=== PATIENT | female | born 1940 | race Caucasian/White ===

== ENCOUNTER → 2017-06-17 | Outpatient (CLI) | payer MEDICARE ==
--- NOTE | 2017-06-17 15:44 | XR ---
Lumbar spine HISTORY: Low back pain 3 views of the lumbar spine and correlated to CT 09/15/2014 There is a levoscoliosis centered at L2 with rotatory component. Vascular calcifications are noted i ncidentally. Multilevel spondylosis is present. Loss of disc height present at L1-2, L2-3 with associ ated vacuum phenomenon, there is endplate sclerosis. Lumbar vertebral bodies show preserved height an d bone mineralization. Sclerosis present in the posterior elements lower lumbar spine. IMPRESSION: Scoliosis, degenerative disc disease and facet arthropathy.
== END | disposition home or self-care (01) ==
LOC: RADXRMAIN 12:24
PROVIDERS: ATTEND Family Medicine
DX: M51.36 Other intervertebral disc degeneration, lumbar region (principal); M41.86 Other forms of scoliosis, lumbar region; M46.86 Other specified inflammatory spondylopathies, lumbar region
CPT/HCPCS: 72100

== ENCOUNTER → 2018-02-08 | Outpatient (CLI) | payer MEDICARE ==
--- NOTE | 2018-02-08 15:40 | US ---
EXAMINATION TYPE: US venous doppler duplex LE LT DATE OF EXAM: 02/08/2018 3:18 PM COMPARISON: NONE CLINICAL HISTORY: M79.605 Pain In Limb. Patient fel 2 weeks ago landing on left leg resulting in left popliteal fossa pain. SIDE PERFORMED: Left TECHNIQUE: The lower extremity deep venous system is examined utilizing real time linear array sonog terrie with graded compression, doppler sonography and color-flow sonography. VESSELS IMAGED: Common Femoral Vein Deep Femoral Vein Greater Saphenous Vein * Femoral Vein Popliteal Vein Small Saphenous Vein * Proximal Calf Veins (* superficial vessels) Left Leg: Negative for DVT. Popliteal fossa complex fluid are is noted = 3.7 x 2.0 x 1.4cm. Grayscale, color doppler, spectral doppler imaging performed of the deep veins of the lower extremiti es. There is normal flow, compressibility, vascular waveforms. IMPRESSION: No evident deep venous thrombosis at or above the left knee. 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 MRI for further additional evaluation.
== END | disposition home or self-care (01) ==
LOC: RADUSWWP 14:37
PROVIDERS: ATTEND Family Medicine
DX: M79.605 Pain in left leg (principal)

== ENCOUNTER → 2018-10-19 | Outpatient (CLI) | payer MEDICARE ==
[2018-10-19 14:54] LABS: Blood Urea Nitrogen 22 mg/dL (7-17)
--- NOTE | 2018-10-19 15:40 | CT ---
EXAMINATION TYPE: CT chest w con DATE OF EXAM: 10/19/2018 COMPARISON: HRCT 03/29/2013 HISTORY: 78-year-old female SOB, Abnormal findings TECHNIQUE: Contiguous axial scanning of the chest after the administration of 100 mL of Isovue 300. Coronal/sagittal reconstructions performed. CT DLP: 521mGycm. Automatic exposure control utilized for a dose reduction. FINDINGS: Heart is upper limits of normal in size without pericardial effusion. Coronary vessel calcifications are present. The thoracic aorta is tortuous and elongated. Aortic root measures 3.2 cm. Mid ascending aorta is mildly ectatic at 3.6 cm as measured on sagittal image 49 and coronal image 36 . Proximal arch measures 3.3 cm. There is bovine configuration to the aortic arch. Upper descending thoracic aorta measures 2.8 cm. Prominent but not enlarged 9 mm precarinal lymph node. No thoracic lymphadenopathy by CT size criteri a. Mild biapical pleural-parenchymal scarring. No consolidation or pleural effusion. Qrlxw-[id number] size hiatal hernia with mural-based irregularity demonstrated. Visualized upper abdomen otherwise shows no gross abnormality. Bones: Endplate spondylosis and associated degenerative disc disease seen throughout the visualized s pine. IMPRESSION: 1. Tortuous and elongated thoracic aorta. The mid ascending aorta is mildly ectatic at 3.6 cm. No fra nk aneurysm. 2. Bbwul-ye-zjvhuqae sized hiatal hernia. Some mural-based irregularity is favored to represent mucos al redundancy rather than neoplasm. Direct visualization as indicated.
== END | disposition home or self-care (01) ==
LOC: RADCTMAIN 14:17
PROVIDERS: ATTEND Internal Medicine
DX: I77.810 Thoracic aortic ectasia (principal); K44.9 Diaphragmatic hernia without obstruction or gangrene
CPT/HCPCS: 82565; 84520; 71260; 36415; Q9967

== ENCOUNTER → 2020-05-25 | Day surgery (SDC) | payer MEDICARE ==
[2020-05-23 17:17] VITALS: BMI 30.5
[~2020-05-25] MED LIST: LACTATED RINGERS 1,000 ML IV SCH; LIDOCAINE 1% (10MG/ML) FOR IV START INTRADERMA ONE; LIDOCAINE 1% INJ 10MG/ML (20 ML MDV) ONE; PROPOFOL 10 MG/ML 20 ML VIAL IV ONE
[2020-05-25 09:19] VITALS: TEMP 96.9
--- NOTE | 2020-05-25 10:45 | P.PCN ---
Date of Procedure: 05/25/20 Procedure(s) Performed: BRIEF HISTORY: Patient is a 79-year-old, pleasant, white female scheduled for an upper endoscopy as a part of evaluation of intermittent dysphagia to solids. She had prior history of esophageal dilation for esophageal stricture performed in 2017. PROCEDURE PERFORMED: Esophagogastroduodenoscopy with balloon dilation. PREOPERATIVE DIAGNOSIS: Intermittent dysphagia to solids. IV sedation per anesthesia. PROCEDURE: After informed consent was obtained, the patient was brought into the endoscopy unit. IV sedation was administered by Anesthesia under continuous monitoring. Initially the Olympus GIF-140 video endoscope was inserted into the mouth. Esophagus intubated without any difficulty. It was gradually advanced into the stomach and duodenum and carefully examined. The bulb and the second part of the duodenum appeared normal. The scope at this time was withdrawn to th e stomach, adequately insufflated with air, and upon careful examination, mucosa of the antrum, body, cardia and the fundus appeared normal. The scope was then withdrawn into the esophagus. The GE junction was located at 39 cm from the incisors. There was a widely patent distal esophageal Schatzki's ring noted which was dilated using 18-20 mm TTS balloon for 90 seconds. There was a small hiatal hernia noted. The rest of the esophagus appeared normal. There were no erosions or ulcerations seen and the patient tolerated the procedure well. IMPRESSION: 1. Distal esophageal Schatzki's ring status post balloon dilation using 18-20 mm TTS balloon as described above. 2. Small Hiatal hernia. RECOMMENDATIONS: The findings of this examination were discussed with the patient as well as her family. She was advised to be on a clear liquid diet today. She'll be seen in office in 4-6 weeks.
[2020-05-25 11:05] VITALS: BP 155/85; PULSE 90; RESP 17
== END ==
LOC: ORWHC2ENDO 08:42
PROVIDERS: ATTEND Internal Medicine Gastroenterology
DX: K22.2 Esophageal obstruction (principal); K44.9 Diaphragmatic hernia without obstruction or gangrene; K21.9 Gastro-esophageal reflux disease without esophagitis; I10 Essential (primary) hypertension; E78.5 Hyperlipidemia, unspecified; J45.909 Unspecified asthma, uncomplicated; E07.9 Disorder of thyroid, unspecified; Z79.890 Hormone replacement therapy; Z79.899 Other long term (current) drug therapy; Z90.710 Acquired absence of both cervix and uterus; Z97.2 Presence of dental prosthetic device (complete) (partial); Z98.890 Other specified postprocedural states
CPT/HCPCS: 43249; J2001; J2704; C1726

== ENCOUNTER → 2020-11-02 | Outpatient (CLI) | payer MEDICARE ==
[2020-11-02 11:49] LABS: HCT 40.3 % (34.0-46.0); HGB 13.4 gm/dL (11.4-16.0); MCH 29.3 pg (25.0-35.0); MCHC 33.3 g/dL (31.0-37.0); MCV 88.1 fL (80.0-100.0); Mean Platelet Volume 7.6; Platelet Count 169 k/uL (150-450); RBC 4.57 m/uL (3.80-5.40); RDW 13.2 % (11.5-15.5); WBC 9.7 k/uL (3.8-10.6)
[2020-11-02 11:57] LABS: INR 0.9 (<1.2); Prothrombin Time 9.9 sec (9.0-12.0)
[2020-11-02 12:00] LABS: Appearance,Urine Clear (Clear); Bilirubin,Urine Negative (Negative); Blood,Urine Negative (Negative); Color,Urine Light Yellow; Glucose,Urine (UA) Negative (Negative); Ketones,Urine Negative (Negative); Leukocyte Esterase,Urine Negative (Negative); Nitrite,Urine Negative (Negative); PH, Urine 6.5 (5.0-8.0); Protein,Urine Negative (Negative); Specific Gravity,Urine 1.005 (1.001-1.035); Urobilinogen,Urine <2.0 mg/dL (<2.0)
[2020-11-02 12:02] LABS: ALT 51 U/L (4-34); AST 40 U/L (14-36); African American GFR (CKD) >90 (>60 ml/min/1.73 sqM); Albumin 4.6 g/dL (3.5-5.0); Alkaline Phosphatase 91 U/L (38-126); Anion Gap 9 mmol/L; Blood Urea Nitrogen 21 mg/dL (7-17); Calcium 9.9 mg/dL (8.4-10.2); Carbon Dioxide 30 mmol/L (22-30); Chloride 100 mmol/L (98-107); Glucose 109 mg/dL (74-99); Non-African American GFR(CKD) 86 (>60 ml/min/1.73 sqM); Potassium 3.9 mmol/L (3.5-5.1); Sodium 139 mmol/L (137-145); Total Bilirubin 0.9 mg/dL (0.2-1.3); Total Protein 7.2 g/dL (6.3-8.2)
== END | disposition home or self-care (01) ==
LOC: LABPAT 10:34
PROVIDERS: ATTEND Orthopaedic Surgery
DX: Z01.818 Encounter for other preprocedural examination (principal); M17.12 Unilateral primary osteoarthritis, left knee; Z79.01 Long term (current) use of anticoagulants; Z01.812 Encounter for preprocedural laboratory examination
CPT/HCPCS: 36415; 80053; 81003; 85027; 85610; 85730; 87070; 93005

== ENCOUNTER 2020-11-27 11:44 | Observation (INO) | payer MEDICARE ==
[2020-11-21 16:37] VITALS: BMI 31.7
[~2020-11-27 11:44] MED LIST changes: +ACETAMINOPHEN TAB 500 MG TAB PO PRN; +GABAPENTIN 300 MG CAP PO PRN; +HYDROmorphone 0.5 MG/0.5 ML SYRINGE IVP PRN; -LACTATED RINGERS 1,000 ML IV SCH; -LIDOCAINE 1% (10MG/ML) FOR IV START INTRADERMA ONE; -LIDOCAINE 1% INJ 10MG/ML (20 ML MDV) ONE; +MELOXICAM 7.5 MG TAB PO PRN; +ONDANSETRON 4 MG/2 ML VIAL IVP ONE; -PROPOFOL 10 MG/ML 20 ML VIAL IV ONE; +TRANEXAMIC ACID 1,000 MG in SODIUM CHLORIDE 0.9% 100 ML IVPB PRN; +fentaNYL (PF) 50 MCG/ML 2 ML AMP IV PRN
[2020-11-27] MEDS: LACTATED RINGERS 1,000 ML IV SCH ×2 (12:33→18:25)
[2020-11-27] MEDS ORDERED: MIDAZOLAM 2 MG/2 ML VIAL IVP ONE (12:42)
[2020-11-27] MEDS ORDERED: ceFAZolin 3,000 MG in SODIUM CHLORIDE 0.9% IRRIGATIO 3,000 ML IRRIGATION ONE (14:46)
[2020-11-27] MEDS ORDERED: ROPIVACAINE 0.2%-NS ON-Q PUMP 1,090 MG, EMPTY PAIN BALL 1 EACH MISCELLANE PRN (14:48)
--- NOTE | 2020-11-27 14:50 | P.ANPRN ---
Procedure Note - Anesthesia - Nerve Block Performed Left Adductor Canal Time Out Performed: Yes (12:42) Date of Procedure: 11/27/20 Procedure Start Time: :42 Procedure Stop Time: 12:59 Location of Patient: PreOp Indication: Acute Post-Operative Pain, Requested by Surgeon (Dr Vinny Ward) Sedation Type: Sedate with meaningful contact maintained Preparation: Sterile Prep, Sterile Dressing Position: Supine Catheter: Indwelling Needle Types: Pajunk Needle Gauge: 21 Ultrasound used to visualize needle placement: Yes Ultrasound used to observe medication spread: Yes Injectate: 0.5% Ropivacaine (see comment for volume) (18cc) Blood Aspirated: No Pain Paresthesia on Injection Noted: No Resistance on Injection: Normal Image Stored and Saved: Yes Events: Uneventful and Well Tolerated
[2020-11-27] MEDS: ROPIVACAINE 246.25 MG, EPINEPHrine 0.5 MG, KETOROLAC 30 MG, cloNIDine HCL/PF 80 MCG, WA... MISCELLANE PRN ×10 (14:51→15:29)
[2020-11-27] MEDS ORDERED: LACTATED RINGERS 1,000 ML IV ONE (15:29)
--- NOTE | 2020-11-27 15:39 | P.OP ---
Date of Procedure: 11/27/20 Preoperative Diagnosis: severe osteoarthritis of the left knee with a valgus deformity Postoperative Diagnosis: severe osteoarthritis the left knee with a valgus deformity Procedure(s) Performed: left total knee arthroplasty Implants: [employer] II CR Oxinium Bi-cruciate femoral component size 7stabilized\4, left [employer] Journey nonporous tibial baseplate size 3, left [employer] Journey II, UHMWPE constrained articular insert, size 9 mm, Size 3-4, left [employer] Journey Mirtha II resurfacing patellar component, oval, 29 mm All components were cemented using Palacos R bone cement The articulation is Oxinium on polyethylene Anesthesia: GETA Surgeon: Vniny Ward Didactic Program In Dietetics Director #1: Kathleen Rodgers Estimated Blood Loss (ml): 25 Pathology: other (bone and cartilage) Condition: stable Disposition: PACU Indications for Procedure: After failure of conservative treatment we discussed the surgical and nonsurgical treatment options at length. Patient wishes to proceed with a total knee arthroplasty. Complications specific to this procedure were discussed at length, including but not limited to infection, bleeding, stiffness, and nerve injury. Covid-19 was also discussed at length with the patient, and they are aware of the current policies and procedures. The patient was given the option of delaying surgery, but they elect to proceed knowing these risks. Patient is aware of all these complications and informed consent was obtained Operative Findings: the operative findings are consistent with severe osteoarthritis of the left knee with a valgus deformity Description of Procedure: Patient was seen in the preoperative area consent was reviewed and operative site was marked with a skin marker. Patient was then brought to the operating room and given preoperative antibiotics intravenously. A spinal anesthetic was administered by the anesthesia department. A tourniquet was placed on the upper thigh and the lower extremity was prepped and draped in usual sterile fashion. A gram of transexamic acid was given. A universal timeout was then performed which confirmed the patient's name, surgical site, ALLERGIES, and consent. The lower extremity was then exsanguinated and tourniquet was inflated to 250 mmHg. A standard and anterior midline approach to the knee was performed. The skin and subcutaneous tissue was dissected down to the patellar tendon. A medial parapatellar arthrotomy was then performed. The knee was then extended, the patellar was everted, and the knee was again flexed. Anterior horns of both menisci were excised, and a minimal medial release was performed because of the valgus deformity of the knee.. On gross visual inspection, there was complete loss of articular cartilage in all 3 compartments of the knee. There was also significant cartilage damage in the lateral compartment. There were multiple periarticular osteophytes which were then removed with a Ronguer. The femoral canal was then opened with the appropriate drill, and the intramedullary femoral cutting guide was then placed and set for 4 of valgus. The distal femoral cutting block was then pinned in place, and the distal femur was then cut. The cutting block was then removed and the cut was checked for flatness. Next, the sizing guide was then placed and set for 3 external rotation based off of the epicondylar axis and Whitesides line. After the femur was sized, the appropriate 4-in-1 cutting block was then pinned in place. The anterior condyles were cut without notching. The posterior and chamfer cuts were performed while protecting the collateral ligaments. The cutting block was then removed. Attention was then directed to the tibia. The remaining ACL was removed with a Ronguer, and the tibia was then gently subluxed forward with a large bent knee retractor. Any remaining menisci was excised. The posterior lateral corner was cauterized in order to cauterize the lateral geniculate artery. The extra medullary tibial cutting guide was then placed, set for the appropriate rotation, slope, and depth of resection. The proximal tibia cutting guide was then pinned in place. Proximal tibia was then cut and sized. The femoral trial was then placed. The box cutting guide was placed and then using the appropriate reamer, the bone was reamed for the box. Then the box os teotome was used to finish the reaming. Next trials were then placed with the appropriate-sized insert. The knee was able to fully extend and flex to 130 and was stable throughout all range of motion. The knee was then extended, patella everted. Patella was then measured, and then using an osteotomy guide, the patella was cut at the appropriate level. The patella was then measured and drilled and the patella trial was then placed. The knee was then taken through range of motion with the patella trial and the patella tracked normally. The knee was then extended patella trial was then removed and the patella was everted. Knee was then flexed and lug holes were drilled through the femoral trial and the femoral trial was then removed. The tibial was then exposed, and the tibial broach guide was then pinned in place after it was set for the appropriate rotation to allow for the most coverage without overhang. The tibia was then broached. The cut surfaces of bone were then irrigated with pulsatile lavage. The posterior structures were injected with the ropivacaine solution. The components were then opened, the cement was mixed, and the components were then cemented in place. The cement was allowed to harden with the knee in full extension. While the cement was hardening, the remaining soft tissues were injected with the ropivacaine solution. After the cemented hardened. The tourniquet was released, and hemostasis was obtained. A second gram of transexamic acid was given. The knee was again irrigated. The knee was again taken through range of motion and found to be stable throughout all range of motion of 0-130, and the patella tracked normally. The fascia was then closed with #2 strata fix suture. The subcutaneous tissue was closed with 3-0 Vicryl and 3-0 strata fix. Exofin glue was used for the skin, and the patient was placed in a sterile dressing. Patient was then transferred to recovery room in stable condition. The speech language pathology assistant LIDIA La was required due the complexity surgery and the need for a skilled surgical assist. She assisted in positioning, draping, retraction, and closure of the woundclosure of the wound.
[2020-11-27] MEDS ORDERED: HYDROmorphone 0.5 MG/0.5 ML SYRINGE IVP PRN ×2 (16:10)
[2020-11-27] MEDS ORDERED: NALOXONE 0.4 MG/ML 1 ML VIAL IV PRN (16:10)
[2020-11-27] MEDS ORDERED: MAGNESIUM HYDROXIDE 2,400 MG/10 ML CUP PO PRN (16:10)
[2020-11-27] MEDS ORDERED: NA PHOS,M-B/NA PHOS,DI-BA 133 ML ENEMA RECTAL PRN (16:10)
[2020-11-27] MEDS ORDERED: HYDROmorphone 0.2 MG/1 ML SYRINGE IVP PRN (16:10)
[2020-11-27] MEDS ORDERED: bisacodyL 10 MG SUPP RECTAL PRN (16:10)
[2020-11-27] MEDS ORDERED: ONDANSETRON 4 MG/2 ML VIAL IVP PRN (16:10)
[2020-11-27] MEDS ORDERED: HYDROcodone/APAP 7.5-325MG 1 EACH TAB PO PRN (16:12)
--- NOTE | 2020-11-27 17:03 | XR ---
Result: History: Postoperative knee. Comparison: None available. Technique: 2 views of the left knee. Findings: There are postsurgical changes related to left total knee arthroplasty. There are postsurgical changes about the soft tissues. No acute fracture or dislocation. No immediate hardware complication. Impression: Expected postoperative changes of left total knee arthroplasty.
[2020-11-27] MEDS: SODIUM CHLORIDE 0.9% 1,000 ML IV SCH (18:26)
[2020-11-27] MEDS: SENNOSIDES-DOCUSATE SODIUM 1 EACH TAB PO SCH (21:12)
[2020-11-27] MEDS: ASPIRIN 325 MG TAB PO SCH (21:12)
--- NOTE | 2020-11-27 23:45 | P.CONS ---
History of Present Illness - Reason for Consult Consult date: 11/27/20 Medical management Requesting physician: Vinny Ward - Chief Complaint Knee pain - History of Present Illness Consultation: This is a pleasant 80-year-old patient who follows with Dr. Ramirez. Chronic stable medical conditions include asthma, GERD, hard of hearing, hypertension, hyperlipidemia, history of dysphagia with dilatation, gout urinary incontinence. Patient today has undergone left total knee arthroplasty. Not hungry postprocedure. Did use a walker to get to the bathroom. Pain is controlled. No nausea vomiting. No chest pain. Review of systems: GEN.: None EYES: None HEENT: Decreased hearing NECK: None RESPIRATORY: Breathing stable CARDIOVASCULAR: None GASTROINTESTINAL: None GENITOURINARY: None MUSCULOSKELETAL: Joint pains LYMPHATICS: None HEMATOLOGICAL: None PSYCHIATRY: None NEUROLOGICAL: None Past medical history to include: Asthma, GERD, hard of hearing, hyperlipidemia, hypertension, os to the right is, hypothyroid, history of esophageal dilatation, gout, wears hearing aids, urinary incontinence, anxiety Social history: No history of smoking or alcohol. Family history: Reviewed, noncontributory to presentation Physical examination: VITAL SIGNS: 98.2, 87, 16, 1 54 x 82, 95% on 2 L GENERAL: BMI 31.7, comfortable. EYES: Pupils equal. Conjunctiva normal. HEENT: External appearance of nose and ears normal, oral cavity grossly normal. Decreased hearing NECK: JVD not raised; masses not palpable. HEART: First and second heart sounds are normal; no edema. LUNGS: Respiratory rate increased, decreased breath sounds. ABDOMEN: Soft, nontender, liver spleen not palpable, no masses palpable. PSYCH: Alert and oriented x3; mood and affect normal. MUSCULAR skeletal: Evidence of OA. Dressing over the left knee NEUROLOGICAL: Cranial nerves grossly intact; no facial asymmetry, power and sensation grossly intact. LYMPHATICS: No lymph nodes palpable in the axilla and neck INVESTIGATIONS, reviewed in the clinical context: [. 11/30/2020]: WBC 9.7 hemoglobin 13.4 platelets 169 potassium 3.9 creatinine 0.60 Assessment and plan: -Left total knee arthroplasty, pain control as per Dr. Ward. -Primary osteoarthritis, use analgesics when necessary -Mild persistent asthma, continue with albuterol nebulizer when necessary -GERD, continue with PPI -Hard of hearing, patient has hearing aids -Hyperlipidemia, on TriCor -Essential hypertension, continue with losartan hydrochlorothiazide -Hypothyroid, continue with Synthroid -Chronic gout, on allopurinol -Chronic urinary stress incontinence, patient weighs dependence -Anxiety not otherwise specified, continue with Celexa For DVT prophylaxis patient on aspirin per Dr. Ward. Care was discussed with the patient. Questions answered. Thank you Dr. Ward Past Medical History Past Medical History: Asthma, GERD/Reflux, Hearing Disorder / Deafness, Hyperlipidemia, Hypertension, Osteoarthritis (OA), Thyroid Disorder Additional Past Medical History / Comment(s): Hx of dysphagia with dilation, gout, hearing aids, neck & lower back pain, hx falls, urine leakage wears pads., pain left knee-has walker and cane. History of Any Multi-Drug Resistant Organisms: None Reported Past Surgical History: Hysterectomy, Orthopedic Surgery Additional Past Surgical History / Comment(s): EGD with dilation (05/08/20), arthroscopic knee surgery Past Anesthesia/Blood Transfusion Reactions: No Reported Reaction Past Psychological History: Anxiety Smoking Status: Never smoker Past Alcohol Use History: None Reported Past Drug Use History: None Reported - Past Family History Mother Family Medical History: No Reported History Medications and Allergies Home Medications Medication Instructions Recorded Confirmed Type Albuterol Nebulized [Ventolin 2.5 mg INHALATION Q6H PRN 05/23/20 11/21/20 History Nebulized] Allopurinol [Zyloprim] 150 mg PO DAILY 05/23/20 11/21/20 History Cholecalciferol [Vitamin D3 (25 1,000 unit PO DAILY 05/23/20 11/21/20 History Mcg = 1000 Iu)] Fenofibrate Nanocrystallized 145 mg PO DAILY 05/23/20 11/21/20 History [Fenofibrate] Levothyroxine Sodium 25 mcg PO QAM 05/23/20 11/21/20 History Levothyroxine Sodium [Synthroid] 200 mcg PO QAM 05/23/20 11/21/20 History Losartan/Hydrochlorothiazide 1 tab PO QAM 05/23/20 11/21/20 History [Losartan-Hctz 100-25 mg Tab] Montelukast [Singulair] 10 mg PO HS 05/23/20 11/21/20 History Omeprazole 20 mg PO DAILY 05/23/20 11/21/20 History Albuterol .083%/3ml 1 dose INHALATION BID PRN 11/21/20 History Citalopram Hydrobromide 40 mg PO HS 11/21/20 11/21/20 History [Citalopram HBr] Cyanocobalamin (Vitamin B-12) 1,000 mcg PO DAILY 11/21/20 11/21/20 History [Vitamin B-12] Ibuprofen 200 mg PO Q8H PRN 11/21/20 11/21/20 History amLODIPine BESYLATE [Norvasc] 2.5 mg PO DAILY 11/21/20 11/21/20 History Aspirin 325 mg PO BID #60 tab 11/27/20 Rx Celecoxib [CeleBREX] 200 mg PO DAILY 5 Days #5 capsule 11/27/20 Rx HYDROcodone/APAP 7.5-325MG [Arnold 1 - 2 tab PO Q6H PRN #32 tab 11/27/20 Rx 7.5-325] Ondansetron Odt [Zofran Odt] 1 tab PO Q8HR PRN #10 tab 11/27/20 Rx Sennosides [Senokot] 2 tab PO DAILY PRN #60 tablet 11/27/20 Rx Allergies Allergy/AdvReac Type Severity Reaction Status Date / Time No Known Allergies Allergy Verified 11/27/20 12:23 Physical Exam Vitals: Vital Signs Temp Pulse Pulse Resp BP Pulse Ox 11/27/20 20:46 80 15 154/82 95 11/27/20 18:19 98.2 F 87 16 176/92 90 L 11/27/20 17:30 92 18 162/78 94 L 11/27/20 17:15 84 18 148/60 96 11/27/20 17:00 74 18 149/74 11/27/20 16:45 81 18 150/68 91 L 11/27/20 16:30 78 18 178/86 95 11/27/20 16:09 98.1 F 94 14 177/85 96 11/27/20 13:13 82 16 147/78 97 11/27/20 12:23 97.9 F 92 16 173/84 96 Intake and Output 11/27/20 11/27/20 11/28/20 14:59 22:59 06:59 Intake Total 1051 600 Output Total 25 Balance 1051 575 Intake: IV 1051 600 Output: Estimated Blood Loss 25 Other: Voiding Method Toilet Incontinent Weight 76 kg
[2020-11-28] MEDS: HYDROcodone/APAP 7.5-325MG 1 EACH TAB PO PRN (06:02)
--- NOTE | 2020-11-28 07:54 | P.PN ---
Progress Note - Text The patient is status post left adductor canal catheter placement. The catheter was placed for postoperative pain control, status post total left arthroplasty. Ropivacaine 0.2% is infusing at 8 mLs per hour. The patient has no complaints of left lower extremity numbness or weakness. Patient's VAS score is 2-10. Assessment: Patient's adductor canal catheter is in place and working appropriately. Plan: continue infusion and adjust it as needed.
[2020-11-28] MEDS: SODIUM CHLORIDE 0.9% 1,000 ML IV SCH (08:46)
[2020-11-28 08:53] LABS: Basophils # (A) 0.02 X 10*3/uL (0.00-0.10); Basophils % (A) 0.2 %; Eosinophils # (A) 0.02 X 10*3/uL (0.04-0.35); Eosinophils % (A) 0.2 %; HCT 36.2 % (37.2-46.3); HGB 11.6 g/dL (12.0-15.0); Lymphocytes # (A) 1.01 X 10*3/uL (0.90-5.00); MCV 90.5 fL (80.0-97.0); Mean Platelet Volume 11.3 fL (9.5-12.2); Monocytes # (A) 1.03 X 10*3/uL (0.20-1.00); Monocytes % (A) 8.2 %; Neutrophils # (A) 10.41 X 10*3/uL (1.80-7.70); Neutrophils % (A) 82.8 %; Platelet Count 160 X 10*3/uL (140-440); WBC 12.56 X 10*3/uL (4.50-10.00)
[2020-11-28] MEDS: LACTATED RINGERS 1,000 ML IV SCH (09:51)
[2020-11-28] MEDS: ASPIRIN 325 MG TAB PO SCH ×2 (09:52→20:47)
[2020-11-28] MEDS: MELOXICAM 7.5 MG TAB PO SCH (09:52)
--- NOTE | 2020-11-28 10:33 | P.PN ---
Subjective Progress Note Date: 11/28/20 Principal diagnosis: Primary osteoarthritis left knee. Valgus deformity left knee. Status post total left knee arthroplasty. This is a pleasant 80-year-old female who is postop day #1 status post total left knee arthroplasty. She is having some nausea and vomiting this morning. She states that she has a poor appetite today. Orthopedically she is doing well. Otherwise no known complaints or concerns today. Vital signs are stable. Objective - Vital Signs Vital signs: Vital Signs Temp 98.3 F 11/28/20 08:35 Pulse 87 11/28/20 08:35 Resp 24 11/28/20 08:35 BP 151/73 11/28/20 08:35 Pulse Ox 96 11/28/20 08:21 Intake & Output 11/27/20 11/28/20 11/28/20 18:59 06:59 18:59 Intake Total 1651 Output Total 25 Balance 1626 Weight 76 kg Intake: IV 1651 Output: Estimated Blood Loss 25 Other: Voiding Method Toilet Incontinent # Voids 3 - Exam This is a pleasant 80-year-old female in no acute distress. She is alert and oriented 3. Exam of the left lower extremity reveals that her Optifoam dressing is clean, dry and intact. She is able to flex the knees slightly off the bed. She has full foot and ankle motion without difficulty or pain. Neurovascular status to the lower extremity is intact. - Labs CBC & Chem 7: 11/28/20 05:40 Labs: Abnormal Lab Results - Last 24 Hours (Table) 11/28/20 Range/Units 05:40 WBC 12.56 H (4.50-10.00) X 10*3/uL RBC 4.00 L (4.10-5.20) X 10*6/uL Hgb 11.6 L (12.0-15.0) g/dL Hct 36.2 L (37.2-46.3) % Immature Gran # 0.07 H (0.00-0.04) X 10*3/uL Neutrophils # 10.41 H (1.80-7.70) X 10*3/uL Monocytes # 1.03 H (0.20-1.00) X 10*3/uL Eosinophils # 0.02 L (0.04-0.35) X 10*3/uL Assessment and Plan (1) Primary localized osteoarthritis of left knee Current Visit: Yes Status: Acute Code(s): M17.12 - UNILATERAL PRIMARY OS TEOARTHRITIS, LEFT KNEE SNOMED Code(s): 078656828 (2) Status post total left knee replacement Current Visit: Yes Status: Acute Code(s): Z96.652 - PRESENCE OF LEFT ARTIFICIAL KNEE JOINT SNOMED Code(s): 7758546262572 (3) Valgus deformity, not elsewhere classified, left knee Current Visit: Yes Status: Acute Code(s): M21.062 - VALGUS DEFORMITY, NOT ELSEWHERE CLASSIFIED, LEFT KNEE SNOMED Code(s): 0065958134640831 Plan: The clinical findings are discussed with the patient. She is awaiting inpatient rehabilitation placement. Continue orthopedic care and physical therapy.
[2020-11-28] MEDS: SENNOSIDES-DOCUSATE SODIUM 1 EACH TAB PO SCH (20:47)
[2020-11-29] MEDS: HYDROcodone/APAP 7.5-325MG 1 EACH TAB PO PRN ×2 (00:22→15:28)
[2020-11-29] MEDS: SODIUM CHLORIDE 0.9% 1,000 ML IV SCH ×2 (00:25→13:22)
--- NOTE | 2020-11-29 00:25 | P.PN ---
Progress Note - Text Progress Note Date: 11/28/20 - Chief Complaint Knee pain Consultation: This is a pleasant 80-year-old patient who follows with Dr. Ramirez. Chronic stable medical conditions include asthma, GERD, hard of hearing, hypertension, hyperlipidemia, history of dysphagia with dilatation, gout urinary incontinence. has undergone left total knee arthroplasty. Today: Some pain in the operative site. Did eat a bit. Did work with therapy. Tired. Oral intake fair Review of systems: Was done for constitutional, cardiovascular, GI, pulmonary. relevant finding as above Active Medications Hydrocodone Bitart/Acetaminophen (Hydrocodone/Apap 7.5-325mg 1 Each Tab) 1 each PO Q6H PRN PRN Reason: Pain Scale 1 to 5 Stop: 12/27/20 16:13 Last Admin: 11/28/20 06:02 Dose: 1 each Documented by: Hydrocodone Bitart/Acetaminophen (Hydrocodone/Apap 7.5-325mg 1 Each Tab) 2 each PO Q6H PRN PRN Reason: Pain Scale 6 to 10 Stop: 12/27/20 16:13 Aspirin (Aspirin 325 Mg Tab) 325 mg PO BID [place] Stop: 12/27/20 21:01 Last Admin: 11/28/20 20:47 Dose: 325 mg Documented by: Bisacodyl (Bisacodyl 10 Mg Supp) 10 mg RECTAL DAILY PRN PRN Reason: Constipation Stop: 12/27/20 16:11 Ropivacaine 1,090 mg/ Bandage/ (Support Products 1 each) 0 mg MISCELLANE Q2H PRN PRN Reason: Breakthrough Pain Stop: 12/27/20 14:49 Last Admin: 11/27/20 17:00 Dose: 1,090 mg Documented by: Hydromorphone HCl (Hydromorphone 0.2 Mg/1 Ml Syringe) 0.2 mg IVP Q3HR PRN PRN Reason: Pain Scale 4 to 6 Stop: 12/27/20 16:11 Last Admin: 11/28/20 09:56 Dose: 0.2 mg Documented by: Hydromorphone HCl (Hydromorphone 0.5 Mg/0.5 Ml Syringe) 0.125 mg IVP Q3HR PRN PRN Reason: Pain Scale 1 to 3 Stop: 12/27/20 16:11 Hydromorphone HCl (Hydromorphone 0.5 Mg/0.5 Ml Syringe) 0.5 mg IVP Q3HR PRN PRN Reason: Pain Scale 7 to 10 Stop: 12/27/20 16:11 Lactated Ringer's (Lactated Ringers) 1,000 mls @ 20 mls/hr IV .Q24H [facility] Stop: 12/25/20 09:01 Last Admin: 11/28/20 09:51 Dose: Not Given Documented by: Sodium Chloride (Saline 0.9%) 1,000 mls @ 70 mls/hr IV .[id number] [facility] Stop: 12/27/20 16:16 Last Admin: 11/28/20 08:46 Dose: 70 mls/hr Documented by: Magnesium Hydroxide (Magnesium Hydroxide 2,400 Mg/10 Ml Cup) 2,400 mg PO DAILY PRN PRN Reason: Constipation Stop: 12/27/20 16:11 Meloxicam (Meloxicam 7.5 Mg Tab) 7.5 mg PO DAILY [facility] Stop: 12/28/20 09:01 Last Admin: 11/28/20 09:52 Dose: 7.5 mg Documented by: Naloxone HCl (Naloxone 0.4 Mg/Ml 1 Ml Vial) 0.2 mg IV Q2M PRN PRN Reason: Opioid Reversal Stop: 12/27/20 16:11 Ondansetron HCl (Ondansetron 4 Mg/2 Ml Vial) 4 mg IVP Q8HR PRN PRN Reason: Nausea And Vomiting Stop: 12/27/20 16:11 Last Admin: 11/28/20 11:46 Dose: 4 mg Documented by: Senna/Docusate Sodium (Sennosides-Docusate Sodium 1 Each Tab) 2 each PO HS [facility] Stop: 12/27/20 21:01 Last Admin: 11/28/20 20:47 Dose: 2 each Documented by: Sodium Biphosphate/Sodium Phosphate (Na Phos,M-B/Na Phos,Di-Ba 133 Ml Enema) 133 ml RECTAL DAILY PRN PRN Reason: Constipation Stop: 12/27/20 16:11 Past medical history to include: Asthma, GERD, hard of hearing, hyperlipidemia, hypertension, os to the right is, hypothyroid, history of esophageal dilatation, gout, wears hearing aids, urinary incontinence, anxiety Social history: No history of smoking or alcohol. Family history: Reviewed, noncontributory to presentation Physical examination: VITAL SIGNS: 98.3, 87, 24, 151/73, 96% on 2 L GENERAL: Sitting up, comfortable EYES: Pupils equal. Conjunctiva normal. HEENT: External appearance of nose and ears normal, oral cavity grossly normal. Decreased hearing NECK: JVD not raised; masses not palpable. HEART: First and second heart sounds are normal; no edema. LUNGS: Respiratory rate increased, decreased breath sounds. ABDOMEN: Soft, nontender, liver spleen not palpable, no masses palpable. PSYCH: Alert and oriented x3; mood and affect normal. MUSCULAR skeletal: Evidence of OA. Dressing over the left knee INVESTIGATIONS, reviewed in the clinical context: November 28: White count 12.5 hemoglobin 11.6 Previous labs WBC 9.7 hemoglobin 13.4 platelets 169 potassium 3.9 creatinine 0.60 Assessment and plan: -Left total knee arthroplasty, pain control as per Dr. Ward. -Primary osteoarthritis, use analgesics when necessary -Mild persistent asthma, continue with albuterol nebulizer when necessary -GERD, continue with PPI -Hard of hearing, patient has hearing aids -Hyperlipidemia, on TriCor -Essential hypertension, continue with losartan hydrochlorothiazide -Hypothyroid, continue with Synthroid -Chronic gout, on allopurinol -Chronic urinary stress incontinence, patient weighs dependence -Anxiety not otherwise specified, continue with Celexa Discussed with patient. Continue current medications Thank you Dr. Ward
--- NOTE | 2020-11-29 08:54 | P.DS ---
Providers Date of admission: 11/28/20 13:14 Expected date of discharge: 11/29/20 Attending physician: Vinny Ward Consults: 11/27/20 16:10 Consult Physician Routine Consulting Provider: Candelario Call Consult Reason/Comments: medical management Do you want consulting provider notified?: Yes Primary care physician: Santos Ramirez - Discharge Diagnosis(es) (1) Primary localized osteoarthritis of left knee Current Visit: Yes Status: Acute (2) Status post total left knee replacement Current Visit: Yes Status: Acute Hospital Course: This is a 80-year-old female with known history of degenerative arthritis of the left knee. The patient presented for evaluation as an outpatient. After discussion and consideration patient elects to proceed with total knee arthroplasty. The patient is seen preoperatively by Dr. Ward and medically cleared for surgery by their primary care physician. Patient is admitted to [facility] on 11/27/2020 for total knee arthroplasty. The procedure is performed without complication or sequelae. The patient is doing well postoperatively. Labs and vital signs are stable on day of discharge. On day of discharge patient's knee incision is healing well. There is minimal erythema. There is no drainage noted at this time. There is minimal soft tissue swelling to the knee. Patient has full foot and ankle motion without difficulty or pain. Calf is soft and nontender to palpation. Neurovascular status to the left lower extremity is intact. Patient is discharged to rehab in good condition. Opioid start talking form is reviewed and signed. Please see med rec for accurate list of home medications. Plan - Discharge Summary Discharge Rx Participant: Yes New Discharge Prescriptions: New Sennosides [Senokot] 2 tab PO DAILY PRN #60 tablet PRN Reason: Constipation Ondansetron Odt [Zofran Odt] 1 tab PO Q8HR PRN #10 tab PRN Reason: Nausea HYDROcodone/APAP 7.5-325MG [[place] 7.5-325] 1 - 2 tab PO Q6H PRN #32 tab PRN Reason: Pain Aspirin 325 mg PO BID #60 tab Celecoxib [CeleBREX] 200 mg PO DAILY 5 Days #5 capsule No Action Albuterol Nebulized [Ventolin Nebulized] 2.5 mg INHALATION Q6H PRN PRN Reason: Shortness Of Breath Cholecalciferol [Vitamin D3 (25 Mcg = 1000 Iu)] 1,000 unit PO DAILY Montelukast [Singulair] 10 mg PO HS Omeprazole 20 mg PO DAILY Losartan/Hydrochlorothiazide [Losartan-Hctz 100-25 mg Tab] 1 tab PO QAM Levothyroxine Sodium [Synthroid] 200 mcg PO QAM Levothyroxine Sodium 25 mcg PO QAM Fenofibrate Nanocrystallized [Fenofibrate] 145 mg PO DAILY Allopurinol [Zyloprim] 150 mg PO DAILY Cyanocobalamin (Vitamin B-12) [Vitamin B-12] 1,000 mcg PO DAILY Citalopram Hydrobromide [Citalopram HBr] 40 mg PO HS Ibuprofen 200 mg PO Q8H PRN PRN Reason: Pain amLODIPine BESYLATE [Norvasc] 2.5 mg PO DAILY Albuterol .083%/3ml 1 dose INHALATION BID PRN PRN Reason: Shortness Of Breath Discharge Medication List Albuterol Nebulized [Ventolin Nebulized] 2.5 mg INHALATION Q6H PRN 05/23/20 [History] Allopurinol [Zyloprim] 150 mg PO DAILY 05/23/20 [History] Cholecalciferol [Vitamin D3 (25 Mcg = 1000 Iu)] 1,000 unit PO DAILY 05/23/20 [History] Fenofibrate Nanocrystallized [Fenofibrate] 145 mg PO DAILY 05/23/20 [History] Levothyroxine Sodium 25 mcg PO QAM 05/23/20 [History] Levothyroxine Sodium [Synthroid] 200 mcg PO QAM 05/23/20 [History] Losartan/Hydrochlorothiazide [Losartan-Hctz 100-25 mg Tab] 1 tab PO QAM 05/23/20 [History] Montelukast [Singulair] 10 mg PO HS 05/23/20 [History] Omeprazole 20 mg PO DAILY 05/23/20 [History] Albuterol .083%/3ml 1 dose INHALATION BID PRN 11/21/20 [History] Citalopram Hydrobromide [Citalopram HBr] 40 mg PO HS 11/21/20 [History] Cyanocobalamin (Vitamin B-12) [Vitamin B-12] 1,000 mcg PO DAILY 11/21/20 [History] Ibuprofen 200 mg PO Q8H PRN 11/21/20 [History] amLODIPine BESYLATE [Norvasc] 2.5 mg PO DAILY 11/21/20 [History] Aspirin 325 mg PO BID #60 tab 11/27/20 [Rx] Celecoxib [CeleBREX] 200 mg PO DAILY 5 Days #5 capsule 11/27/20 [Rx] Ondansetron Odt [Zofran Odt] 1 tab PO Q8HR PRN #10 tab 11/27/20 [Rx] Sennosides [Senokot] 2 tab PO DAILY PRN #60 tablet 11/27/20 [Rx] HYDROcodone/APAP 7.5-325MG [[place] 7.5-325] 1 - 2 tab PO Q6H PRN #32 tab 11/29/20 [Rx] Follow up Appointment(s)/Referral(s): Vinny Ward DO [Doctor of Osteopathic Medicine] - 2 Weeks Ambulatory/Diagnostic Orders: Continuous Passive Motion (CPM) Machine [DME.AMB1] Time Frame: 3 Weeks, Location: None Selected Activity/Diet/Wound Care/Special Instructions: Weightbearing as tolerated with a walker. CPM 5-6h daily as tolerated. Leave dressing intact. May be removed by home care nurse or by patient in 10 days. May shower with dressing on. Recommend use of compression stockings daily until follow up to help prevent swelling and blood clots. May remove at night before sleeping. Please take aspirin 325mg twice daily for 30 days to prevent blood clots. Please follow up with [facility] and call with any questions or concerns, . Discharge Disposition: TRANSFER TO SNF/ECF
[2020-11-29] MEDS: MELOXICAM 7.5 MG TAB PO SCH (09:28)
[2020-11-29] MEDS: ASPIRIN 325 MG TAB PO SCH (09:28)
[2020-11-29] MEDS: LACTATED RINGERS 1,000 ML IV SCH (10:21)
[2020-11-29 14:07] VITALS: BP 126/79; PULSE 83; RESP 18; TEMP 98.2
--- NOTE | 2020-11-30 15:39 | P.PN ---
Subjective Progress Note Date: 11/29/20 Principal diagnosis: Left total knee arthroplasty Ms. Garay is a pleasant 80-year-old patient who follows with Dr. Ramirez. Chronic stable medical conditions include asthma, GERD, hard of hearing, hypertension, hyperlipidemia, history of dysphagia with dilatation, gout urinary incontinence. Patient has undergone left total knee arthroplasty on 11/27/2020. Postop no complications. She is getting ready for discharge. Vitals have been stable. Objective - Vital Signs Vital signs: Vital Signs Temp 98.2 F 11/29/20 14:06 Pulse 83 11/29/20 14:06 Resp 18 11/29/20 14:06 BP 126/79 11/29/20 14:06 Pulse Ox 93 L 11/29/20 14:06 Intake & Output 11/28/20 11/29/20 11/29/20 18:59 06:59 18:59 Other: Voiding Method Toilet Toilet # Voids 1 1 - Exam PHYSICAL EXAM Vital signs: Temperature 98.2, heart rate 80, respiratory rate 18, blood pressure 10/02/2078, saturating at 93% on room air. GENERAL: Sitting up, comfortable HEENT: Decreased hearing HEART: First and second heart sounds are normal; no edema. LUNGS: Respiratory rate increased, decreased breath sounds. MUSCULAR skeletal: Evidence of OA. Dressing over the left knee - Labs CBC & Chem 7: 11/28/20 05:40 Assessment and Plan Assessment: ASSESSMENT -Left total knee arthroplasty -Primary osteoarthritis -Mild persistent asthma -GERD, -Hard of hearing, patient has hearing aids -Hyperlipidemiar -Essential hypertension -Hypothyroid -Chronic gout -Chronic urinary stress incontinence, -Anxiety not otherwise specified PLAN: Patient's medication reconciliation has been done. Pain management and DVT prophylaxis as per orthopedics recommendations. Patient is advised to continue with the rest of her home medication regimen.
== END 2020-11-29 16:25 ==
LOC: OR 11:44 → 4SSUR 17:49 → OR 11-28 13:14 → 4SSUR 11-28 13:14
PROVIDERS: ADMIT Orthopaedic Surgery; ATTEND Orthopaedic Surgery
DX: M17.12 Unilateral primary osteoarthritis, left knee (principal); J45.909 Unspecified asthma, uncomplicated; I10 Essential (primary) hypertension; K21.9 Gastro-esophageal reflux disease without esophagitis; M1A.9XX0 Chronic gout, unspecified, without tophus (tophi); E78.5 Hyperlipidemia, unspecified; E03.9 Hypothyroidism, unspecified; N39.3 Stress incontinence (female) (male); M21.062 Valgus deformity, not elsewhere classified, left knee; R26.89 Other abnormalities of gait and mobility; E66.9 Obesity, unspecified; Z68.31 Body mass index [BMI] 31.0-31.9, adult; H91.90 Unspecified hearing loss, unspecified ear; F41.9 Anxiety disorder, unspecified; F32.9 Major depressive disorder, single episode, unspecified; Z79.1 Long term (current) use of non-steroidal anti-inflammatories (NSAID); Z79.82 Long term (current) use of aspirin; Z79.890 Hormone replacement therapy; Z79.899 Other long term (current) drug therapy; Z90.710 Acquired absence of both cervix and uterus; Z98.890 Other specified postprocedural states; Z87.19 Personal history of other diseases of the digestive system; Z87.11 Personal history of peptic ulcer disease; Z20.822 Contact with and (suspected) exposure to COVID-19
CPT/HCPCS: 27447; 94760; 97116; 97161; 97535; 97166; 64448; 76942; 85025; 88300; 87635; 73560; G0378 ×2; C1713; C1776; J2250; J0171; J0690 ×3; J2405 ×2; J1885; J2795 ×2; J0735; J1170 ×2

== ENCOUNTER 2021-08-21 11:04 | Day surgery (SDC) | payer MEDICARE ==
[2021-08-20 11:43] VITALS: BMI 32.6
[~2021-08-21 11:04] MED LIST changes: -ACETAMINOPHEN TAB 500 MG TAB PO PRN; -GABAPENTIN 300 MG CAP PO PRN; -HYDROmorphone 0.5 MG/0.5 ML SYRINGE IVP PRN; +LACTATED RINGERS 1,000 ML IV SCH; +LIDOCAINE 1% (10MG/ML) FOR IV START INTRADERMA PRN; -MELOXICAM 7.5 MG TAB PO PRN; -ONDANSETRON 4 MG/2 ML VIAL IVP ONE; -TRANEXAMIC ACID 1,000 MG in SODIUM CHLORIDE 0.9% 100 ML IVPB PRN; -fentaNYL (PF) 50 MCG/ML 2 ML AMP IV PRN
[2021-08-21 11:46] VITALS: TEMP 97.5
[2021-08-21] MEDS ORDERED: LIDOCAINE 1% INJ 10MG/ML (20 ML MDV) ONE (12:21)
[2021-08-21] MEDS ORDERED: PROPOFOL 10 MG/ML 20 ML VIAL IV ONE (12:21)
--- NOTE | 2021-08-21 12:32 | P.PCN ---
Date of Procedure: 08/21/21 Procedure(s) Performed: BRIEF HISTORY: Patient is a 80-year-old, pleasant, white female scheduled for an upper endoscopy as a part of evaluation of dysphagia to solids for the last several months duration. She does have long-standing history of GERD and has been on omeprazole 20 mg daily.. PROCEDURE PERFORMED: Esophagogastroduodenoscopy. PREOPERATIVE DIAGNOSIS: GERD/intermittent dysphagia to solids. IV sedation per anesthesia. PROCEDURE: After informed consent was obtained, the patient was brought into the endoscopy unit. IV sedation was administered by Anesthesia under continuous monitoring. Initially the Olympus GIF-140 video endoscope was inserted into the mouth. Esophagus intubated without any difficulty. It was gradually advanced into the stomach and duodenum and carefully examined. The bulb and the second part of the duodenum appeared normal. The scope at this time was withdrawn to the stomach, adequately insufflated with air, and upon careful examination, mucosa of the antrum, body, cardia and the fundus appeared normal. The scope was then withdrawn into the esophagus. Moderate sliding type hiatal hernia noted. The GE junction was located at 37 cm from the incisors. There was a widely patent distal esophageal Schatzki's ring identified and this was dilated using 15-18 mm TTS balloon in a sequential fashion for 60 seconds. The rest of the esophagus appeared normal. There were no erosions or ulcerations seen and the patient tolerated the procedure well. IMPRESSION: 1. Distal esophageal Schatzki's ring status post balloon dilation using 15-18 mm TTS balloon as described above. 2. Small sliding type hiatal hernia. RECOMMENDATIONS: The findings of this examination were discussed with the patient as well as a family. She was advised to continue with omeprazole 20 mg daily and follow antireflux measures..
[2021-08-21 12:44] VITALS: RESP 20
[2021-08-21 13:22] VITALS: BP 155/92; PULSE 88
== END 2021-08-21 13:22 | disposition home or self-care (01) ==
LOC: ORWHC2ENDO 11:04
PROVIDERS: ATTEND Internal Medicine Gastroenterology
DX: K21.9 Gastro-esophageal reflux disease without esophagitis (principal); K22.2 Esophageal obstruction; K44.9 Diaphragmatic hernia without obstruction or gangrene; I10 Essential (primary) hypertension; E78.5 Hyperlipidemia, unspecified; J45.909 Unspecified asthma, uncomplicated; E07.9 Disorder of thyroid, unspecified; Z79.899 Other long term (current) drug therapy
CPT/HCPCS: 43249; J2001; J2704; C1726

== ENCOUNTER → 2023-02-16 | Outpatient (CLI) | payer MEDICARE ==
--- NOTE | 2023-02-16 15:57 | XR ---
EXAMINATION TYPE: XR chest 2V DATE OF EXAM: 02/16/2023 COMPARISON: 08-22 TECHNIQUE: PA and lateral views submitted. HISTORY: Shortness of breath FINDINGS: The lungs are clear and there is no pneumothorax, pleural effusion, or focal pneumonia. Heart size normal and no overt failure. Osseous structures demonstrate hypertrophic and degenerative changes of the spine. There is prominence of the ascending aorta. Arthropathy of the shoulders with diffuse oste openia. IMPRESSION: 1. No acute process. There is ectasia of the aorta. There is increased prominence of the right hilum. Recommend CT scan of the chest to exclude aneurysm.
== END | disposition home or self-care (01) ==
LOC: RADXRMAIN 15:31
PROVIDERS: ATTEND Family Medicine
DX: I77.819 Aortic ectasia, unspecified site (principal); R07.89 Other chest pain
CPT/HCPCS: 71046

== ENCOUNTER → 2023-02-25 | Outpatient (CLI) | payer MEDICARE ==
[2023-02-25 11:22] LABS: African American GFR (CKD) 65 (>60 ml/min/1.73 sqM); Blood Urea Nitrogen 31 mg/dL (7-17); Non-African American GFR(CKD) 56 (>60 ml/min/1.73 sqM)
--- NOTE | 2023-02-25 12:44 | CT ---
EXAMINATION TYPE: CT chest w con DATE OF EXAM: 02/25/2023 COMPARISON: 10/19/2018 HISTORY: chest pain CT DLP: 353.8 mGycm Automated exposure control for dose reduction was used. TECHNIQUE: CT scan of the chest is performed with IV Contrast, patient injected with 80cc mL of Isovue 300. MIP Images are created on CT scanner and reviewed. 3D reconstructed images are created on an independent workstation and reviewed. FINDINGS: LUNGS: The lungs are grossly clear, there is no concerning parenchymal mass or nodule identified. T here is no pleural effusion or pneumothorax seen. The tracheobronchial tree is patent. MEDIASTINUM: There are no greater than 1 cm hilar or mediastinal lymph nodes. Trace pericardial effus ion is seen. Heart is enlarged and there is dense coronary artery calcification. AORTA: The thoracic aorta is tortuous and elongated. There is a bovine arch anatomy. Aortic root measures 3.2 cm. Mid ascending aorta is mildly ectatic at 3.7 cm. Proximal arch measures 3.3 cm. There is bovine configuration to the aortic arch. Upper descending thoracic aorta measures 2.8 cm. OTHER: Multilevel severe hypertrophic degenerative change with scoliosis. Deformity in the sagittal view of the sternum is motion artifact. There is a small hiatal hernia and there are punctate calcifi cations in the pancreatic tail and some of which appear vascular. 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 IMPRESSION: 1. Tortuous aorta measuring 3.7 cm in greatest dimension and previous measuring 3.6 cm. No diagnostic evidence of aneurysm 2. Small hiatal hernia. 3. Dense coronary artery calcification with cardiomegaly correlate clinically. 4. Hepatic steatosis.
== END | disposition home or self-care (01) ==
LOC: RADCTMAIN 10:40
PROVIDERS: ATTEND Family Medicine
DX: I77.810 Thoracic aortic ectasia (principal); I25.10 Atherosclerotic heart disease of native coronary artery without angina pectoris; I51.7 Cardiomegaly; K76.0 Fatty (change of) liver, not elsewhere classified; K44.9 Diaphragmatic hernia without obstruction or gangrene
CPT/HCPCS: 82565; 84520; 71260; 36415; Q9967

== ENCOUNTER → 2023-04-24 | Outpatient (CLI) | payer MEDICARE ==
--- NOTE | 2023-04-24 11:39 | XR ---
EXAMINATION TYPE: XR Hip LT and AP Pelvis DATE OF EXAM: 04/24/2023 COMPARISON: NONE HISTORY: Left hip TECHNIQUE: A single AP view of the pelvis is obtained. Two views of the left hip are obtained. FINDINGS: There is no acute fracture/dislocation evident in the pelvis. SI joints are patent. Vascul ar calcifications noted there is osteitis symphysis pubis. Moderate arthropathy of the right hip. There is severe arthropathy of the left hip with complete loss of joint space and cystic changes involving the femoral head which can be associated with osteonecro sis. Degenerative change lower lumbar spine. Spinal bifid occulta at the sacrococcygeal level. IMPRESSION: 1. Severe left hip arthropathy with complete loss of joint space. Cystic changes involving the femora l head can be associated with osteonecrosis.
== END | disposition home or self-care (01) ==
LOC: RADXRMAIN 11:09
PROVIDERS: ATTEND Family Medicine
DX: M16.12 Unilateral primary osteoarthritis, left hip (principal)
CPT/HCPCS: 73502

== ENCOUNTER → 2023-05-12 | Outpatient (CLI) | payer MEDICARE ==
--- NOTE | 2023-05-12 12:53 | NM ---
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 The patient exercised using a TIMA protocol and 1 minute prior to peak e xercise was injected with 26.0 mCi Tc 99m Sestamibi - Stress images obtained 75 minutes post injectio n. FINDINGS: Targeted heart rate was achieved during performance of the study. Review of stress and rest SPECT tika ges demonstrates no distinct perfusion abnormality. Gated analysis shows normal wall motion with an estimated left ventricular ejection fraction of 84 %. IMPRESSION: No scintigraphic evidence for reversible ischemia
--- NOTE | 2023-05-12 17:27 | CA ---
Lexiscan Nuclear Stress Test Report Name: Acacia Garay Exam Date: 05/12/2023 10:50 Exam Location: [facility] Ht (in): 62 Wt (lb): 164 BSA: 1.76 Ordering Phys: Santos Ramirez DO Referring Phys: Jana Narvaez Technologist: Elliot Cho Age: 82 Gender: F : 1940 Procedure CPT: Indications: I25.84 CORONARY ATHEROSCLEROSIS DUE TO CALCIFIED C ICD-10 Codes: Patient History: Medications: SEE LIST Meds past 24 hrs: Pretest Chest Pain: STRESS TEST Lexiscan Protocol Exercise Duration (min:sec): 02:[address] Depressions (mm): Angina Score: Hodges Score: Resting HR (bpm): 59 Peak HR (bpm): 81 Resting BP (mmHg): 136 / 77 Peak BP (mmHg): 166 / 85 MPHR: 137 Target HR: 116 % MPHR: 59 METS: 1.0 Total Dose: Peak Dose: Atropine: Double Product: 35609 BP Response: Stress Termination: PROTOCOL COMPLETE Stress Symptoms: No chest pain or symptoms Stress Summary: ECG ANALYSIS Resting ECG: Stress ECG: CONCLUSIONS RESTING EKG: [Normal sinus rhythm, normal EKG] , Heart rate 64 BPM Patient recieved IV infusion of Lexiscan 0.4mg and at peak infusion STRESS EKG showed: [No significant ST-T wave changes diagnostic for ischemia by ST segment analysis] ARRYTHMIAS: [No ectopic rhythms or sustained arrythmias] CONCLUSION: 1. Normal hemodynamic and heart response to Lexiscan infusion. 2. Normal resting EKG 3. Non-ischemic EKG response to lexiscan infusion 4. Nuclear perfusion imaging is reported separately by the radiology team. Please refer to that report for complete interpretation of this study. Dr Fortino Silvestre (Electronically Signed) Final Date: 12 May 2023 17:26
== END | disposition home or self-care (01) ==
LOC: RADNMMAIN 08:22
PROVIDERS: ATTEND Family Medicine
DX: I25.10 Atherosclerotic heart disease of native coronary artery without angina pectoris (principal); I25.84 Coronary atherosclerosis due to calcified coronary lesion
CPT/HCPCS: 93017; 78452; A9500

== ENCOUNTER → 2023-07-03 | Outpatient (CLI) | payer MEDICARE ==
[2023-07-03 12:53] LABS: Partial Thromboplastin Time 22.3 sec (22.0-30.0)
[2023-07-03 17:31] LABS: Appearance,Urine Turbid (Clear); Bilirubin,Urine Negative (Negative); Blood,Urine Negative (Negative); Color,Urine Yellow (Yellow); Ketones,Urine Negative (Negative); Nitrite,Urine Negative (Negative); Specific Gravity,Urine 1.025 (1.001-1.030)
[2023-07-03 17:32] LABS: ALT 15 U/L (8-44); AST 16 U/L (13-35); Albumin 4.4 d/dL (3.8-4.9); Albumin/Globulin Ratio 1.91 Ratio (1.60-3.17); Alkaline Phosphatase 65 U/L (41-126); Calcium 10.2 mg/dL (8.7-10.3); Carbon Dioxide 20.4 mmol/L (21.6-31.8); Chloride 103 mmol/L (96-109); Globulin 2.3 d/dL (1.6-3.3); Glucose 105 mg/dL (70-110); Potassium 4.3 mmol/L (3.5-5.5); Sodium 142 mmol/L (135-145); Total Bilirubin 0.3 mg/dL (0.3-1.2); Total Protein 6.7 d/dL (6.2-8.2)
[2023-07-03 17:33] LABS: Bacteria,Urine None Seen (None Seen)
[2023-07-03 18:02] LABS: HCT 38.7 % (37.2-46.3); HGB 11.9 d/dL (12.0-15.0); MCH 28.6 pg (27.0-32.0); MCHC 30.7 d/dL (32.0-37.0); Mean Platelet Volume 11.8 FL (9.5-12.2); NRBC Per 100 WBC 0 X 10*3/uL (0.00-0.01); Platelet Count 200 X 10*3/uL (140-440); RBC 4.16 X 10*6/uL (4.10-5.20)
[2023-07-03 21:48] LABS: INR 0.9 (<1.2); Prothrombin Time 10.2 sec (10.0-12.5)
== END | disposition home or self-care (01) ==
LOC: LABPAT 10:58
PROVIDERS: ATTEND Orthopaedic Surgery
DX: Z01.812 Encounter for preprocedural laboratory examination (principal); M16.12 Unilateral primary osteoarthritis, left hip
CPT/HCPCS: 80053; 81001; 85027; 85610; 85730; 86850; 86900; 86901; 87070

== ENCOUNTER 2023-07-14 05:38 | Inpatient (IN) | payer MEDICARE ==
[~2023-07-14 05:38] MED LIST changes: +ACETAMINOPHEN TAB 500 MG TAB PO PRN; +GABAPENTIN 300 MG CAP PO PRN; -LACTATED RINGERS 1,000 ML IV SCH; -LIDOCAINE 1% (10MG/ML) FOR IV START INTRADERMA PRN; +MELOXICAM 7.5 MG TAB PO PRN; +TRANEXAMIC 1,000 MG/100ML-NACL 1,000 MG in SALINE 1 100ML.BAG IVPB PRN
[2023-07-14] MEDS ORDERED: ONDANSETRON 4 MG/2 ML VIAL ONE (05:46)
[2023-07-14] MEDS ORDERED: LIDOCAINE 1% (10MG/ML) FOR IV START INTRADERMA PRN (05:49)
[2023-07-14] MEDS ORDERED: DEXAMETHASONE SOD PHOSPHATE 4 MG/ML 1 ML VIAL IV ONE (05:49)
[2023-07-14] MEDS ORDERED: ONDANSETRON 4 MG/2 ML VIAL IVP ONE (05:49)
[2023-07-14] MEDS: LACTATED RINGERS 1,000 ML IV SCH (06:22)
[2023-07-14] MEDS ORDERED: MIDAZOLAM 2 MG/2 ML VIAL IVP ONE (06:38)
[2023-07-14] MEDS ORDERED: ROPIVACAINE 5 MG/ML 30 ML VIAL ONE (06:50)
[2023-07-14] MEDS ORDERED: fentaNYL (PF) 50 MCG/ML 2 ML AMP ONE (06:50)
[2023-07-14] MEDS ORDERED: DEXAMETHASONE SOD PHOSPHATE 4 MG/ML 1 ML VIAL ONE (06:50)
[2023-07-14] MEDS ORDERED: PROPOFOL 10 MG/ML 20 ML VIAL IV ONE (06:50)
[2023-07-14] MEDS ORDERED: SODIUM CHLORIDE 0.9% (PF) 10 ML VIAL ONE (06:50)
[2023-07-14] MEDS ORDERED: TRANEXAMIC 1,000 MG/100ML-NACL PREMIX BAG ONE (06:50)
[2023-07-14] MEDS ORDERED: ceFAZolin 1,000 MG in SODIUM CHLORIDE 0.9% 1,000 ML IRRIGATION ONE (06:55)
[2023-07-14] MEDS ORDERED: HYDROmorphone 0.5 MG/0.5 ML SYRINGE IVP PRN ×4 (07:00→08:59)
[2023-07-14] MEDS ORDERED: ROPIVACAINE 5 MG/ML 30 ML VIAL MISCELLANE ONE ×2 (07:19→08:24)
--- NOTE | 2023-07-14 07:31 | P.ANPRN ---
Procedure Note - Anesthesia - Nerve Block Performed Left Ruy Single Time Out Performed: Yes Date of Procedure: 07/14/23 Procedure Start Time: 06:38 Procedure Stop Time: 06:45 Location of Patient: PreOp Indication: Acute Post-Operative Pain, Requested by Surgeon Specifically requested for management of pain by : Vinny Ward Sedation Type: Sedate with meaningful contact maintained Preparation: Sterile Prep Position: Supine Needle Types: Pajunk Needle Gauge: 21 Ultrasound used to visualize needle placement: Yes Ultrasound used to observe medication spread: Yes Injectate: 0.5% Ropivacaine (see comment for volume) (15 ml +10 ml NS + 4 mg dexamethasone) Blood Aspirated: No Pain Paresthesia on Injection Noted: No Resistance on Injection: Normal Image Stored and Saved: Yes Events: Uneventful and Well Tolerated
[2023-07-14] MEDS ORDERED: LACTATED RINGERS 1,000 ML IV ONE (08:25)
--- NOTE | 2023-07-14 08:33 | P.OP ---
Date of Procedure: 07/14/23 Preoperative Diagnosis: Severe osteoarthritis left hip Postoperative Diagnosis: Severe osteoarthritis left hip Procedure(s) Performed: Left total hip arthroplasty with a direct anterior approach Implants: [employer] Anthology standard size 3 [employer] R3, 3 hole hemispherical acetabular shell, 48 mm [employer] Reflection 6.5 mm cancellus screw, 20 mm 2 [employer] R3, XLPE 20 acetabular liner [employer] Oxinium femoral head 32 m, -3 All components were press-fit. The articulation is Oxinium on polyethylene. Anesthesia: spinal Surgeon: Vinny Ward Nba Player #1: Kathleen Rodgers Estimated Blood Loss (ml): 200 Pathology: none sent Condition: stable Disposition: PACU Indications for Procedure: After failure of conservative treatment we discussed the surgical and nonsurgical treatment options at length. Patient wishes to proceed with a total hip arthroplasty with a direct anterior approach. Complications specific to this procedure were discussed at length, including but not limited to infection, leg length discrepancy, dislocation, nerve injury, and fracture. Covid-19 was also discussed at length with the patient, and they are aware of the current policies and procedures. The patient was given the option of delaying surgery, but they elect to proceed knowing these risks. Patient is aware of all these complications and informed consent was obtained Operative Findings: The operative findings are consistent with severe osteoarthritis of the left hip Description of Procedure: The patient was seen and evaluated in the preoperative area and the consent was reviewed. The operative site was marked with a skin marker. The patient verified the procedure and operative site. A CARLOTTA block was placed by anesthesia in the preoperative area. The patient was then brought to the operating room and given preoperative antibiotics intravenously. 1 g of Tranexamic acid was also given intravenously. A spinal anesthetic was administered by the anesthesia department. The patient was then placed on the Seibert table with the bony prominences well-padded. The hip area was then prepped with a ChloraPrep solution and draped in the usual sterile fashion. A universal timeout was then performed, which confirmed the patient's name, surgical site, ALLERGIES, and procedure being performed on the consent. Next the incision site was located at 1 cm distal and 4 cm lateral to the anterior superior iliac spine. The skin and subcutaneous tissues were sharply incised. Incision was carefully dissected down to the fascia overlying the tensor fascia rudy muscle. This fascia was then incised in line with the muscle fibers. Care was taken to stay laterally in order to avoid injuring the lateral femoral cutaneous nerve. Next, using blunt finger dissection, the tensor fascia rudy muscle was dissected off its investing fascia. The muscle was then carefully retracted laterally with a cobra retractor over the lateral neck of the femur. Next, the circumflex vessels were identified and cauterized using the Aquamantis device. The anterior hip capsule was then exposed. The capsule was then opened and an inverted T fashion. The retractors were then placed intracapsularly. The retractors were maintained intracapsular throughout the procedure. The proximal femur was then visualized. Fluoroscopic x-rays were then taken in order to evaluate the preoperative leg lengths. A small amount of traction was placed on the leg. The femoral neck was then osteotomized at the appropriate level above the lesser trochanter. A small wedge of bone was then removed from the remaining femoral head. Next, using a corkscrew the femoral head was removed from the acetabulum. On gross visual inspection, the femoral head had complete loss of articular cartilage and multiple periarticular osteophytes. The femoral head was then measured. Attention was then turned to the acetabulum. The acetabulum was exposed and any remaining labrum was excised. Sequential reaming of the acetabulum was performed using fluoroscopic guidance until there was a good bed of bleeding cancellus bone. When the appropriate size was reach ed, a trial was then placed. The position and fit of the trial was checked with fluoroscopy. The trial was then removed. Then, using fluoroscopic guidance, the final implant was impacted at 20 of anteversion and 40 of abduction, and fully seated in the acetabulum. 2 screws were then placed in the acetabulum. Again fluoroscopy was used to check position of the screws. Next, the liner was then impacted, with a 20 elevated liner located in the anterior superior quadrant. Component locking was confirmed. Attention was then directed to the femur. With the aid of the Seibert table, the femur was externally rotated to approximately 130, extended, and adducted under the opposite leg. A side hook was then placed under the proximal femur, and the side hook elevator was used to elevate the proximal femur while releasing the capsule. Retractors were then placed. A capsular release was performed, as well as a release of the conjoined tendon, which afforded excellent visualization of the proximal femur. Next, a box osteotome was used to lateralize the proximal femur. A stock handler floorperson was then used to locate the femoral canal. Sequential broaching was then performed with appropriate size which afforded excellent fixation in the proximal femur. A trial was then placed with appropriate head and neck, and the hip was gently reduced with the aid of the Seibert table. Fluoroscopy was then used to check position of the components, as well as to evaluate the leg lengths and offset. The leg lengths and offset were measured as closely as possible to ensure stability of the hip. The hip was then gently dislocated and the trials were then removed. Final implants were then impacted and the hip was again reduced. Final fluoroscopic x-rays confirmed that the components were in anatomic position. The leg lengths and offset were measured and were found to coincide with the trial measurements. The hip was also taken through range of motion, and found to be stable. The hip was then copiously irrigated with antibiotic solution with pulsatile lavage. The hip was then irrigated with Irrisept solution. The soft tissues were then injected with a ropivacaine solution. A second dose of 1 g of Tranexamic acid was also given intravenously. The fascia was then closed with 2-0 strata fix suture. The subcutaneous tissue was closed with 3-0 Vicryl. The subcuticular tissue was closed with 3-0 strata fix suture. The skin was then closed with Exofin skin glue. After the glue and dried, and Optifoam silver impregnated dressing was applied. The patient was then transferred to the recovery room in stable condition. The recreational assistant LIDIA La was required due to the complexity of surgery, and the need for skilled surgical scrub tech for positioning, draping, exposure, retraction, and closure of the wound.
--- NOTE | 2023-07-14 08:56 | FL ---
EXAMINATION TYPE: FL guidance operating room DATE OF EXAM: 07/14/2023 HISTORY: Fluoroscopy time Total dose area product (DAP) in uGy*m?, mGy*cm? (or similar): 0.9700 IMPRESSION: 1. Fluoroscopy time.
--- NOTE | 2023-07-14 08:57 | XR ---
EXAMINATION TYPE: XR Hip Limited LT DATE OF EXAM: 07/14/2023 COMPARISON: NONE HISTORY: Postop TECHNIQUE: 5 views submitted. FINDINGS: There is postsurgical change compatible hip replacement surgery. IMPRESSION: 1. Postoperative change.
[2023-07-14] MEDS ORDERED: MAGNESIUM HYDROXIDE 2,400 MG/30 ML CUP PO PRN (08:59)
[2023-07-14] MEDS ORDERED: NALOXONE 0.4 MG/ML 1 ML VIAL IV PRN (08:59)
[2023-07-14] MEDS ORDERED: ONDANSETRON 4 MG/2 ML VIAL IVP PRN (08:59)
--- NOTE | 2023-07-14 09:44 | XR ---
EXAMINATION TYPE: XR Hip Limited LT DATE OF EXAM: 07/14/2023 COMPARISON: NONE HISTORY: Pain TECHNIQUE: One view submitted. FINDINGS: There is postsurgical change compatible hip replacement surgery. IMPRESSION: 1. Postoperative change. Appears in near-anatomic alignment.
[2023-07-14] MEDS ORDERED: ALBUTEROL NEBULIZED 2.5 MG/3 ML INHALATION PRN (09:53)
[2023-07-14] MEDS: HYDROcodone/APAP 7.5-325MG 1 EACH TAB PO PRN ×2 (16:25→23:22)
--- NOTE | 2023-07-14 16:55 | P.CONS ---
History of Present Illness - Reason for Consult Consult date: 07/14/23 Medical management, postop left hip arthroplasty - History of Present Illness This is a very Pleasant 82-year-old female who was admitted under orthopedic services this morning and underwent left total hip arthroplasty with anterior approach secondary to severe osteoarthritis of the left hip. Patient reports she follows with Dr. Ramirez in the outpatient setting with a past medical history of asthma, GERD, hyperlipidemia, hypertension, memory impairment, osteoarthritis, thyroid disorder, anxiety/depression. Patient denies any tobacco or illicit drug use and very rarely drinks anything. Patient is postop day 0 and have been consulted for medical management. Patient reports she did undergo presurgical clearance. Patient is extremely lethargic on exam although arousable and maintained on 2 L via nasal cannula. Home medications have been reviewed and resumed as appropriate and we will continue to follow with orthopedics during hospitalization. Discussed with nursing staff about the use of incentive spirometer and instructing advocating to use at least 10 times every hour while awake. Review Of Systems: Constitutional: No fever, no chills, no night sweats. No weight change. No weakness, fatigue or lethargy. No daytime sleepiness. EENT: No headache. No blurred vision or double vision, no loss of vision. No loss of Hearing, no ringing in the ears, no dizziness. No nasal drainage or congestion. No epistaxis. No sore throat. Lungs: No shortness of breath, cough, no sputum production. No wheezing. Cardiovascular: No chest pain, no lower extremity edema. No palpitations. No paroxysmal nocturnal dyspnea. No orthopnea. No lightheadedness or dizziness. No syncopal episodes. Abdominal: No abdominal pain. No nausea, vomiting. No diarrhea. No constipation. No bloody or tarry stools.. No loss of appetite. Genitourinary: No dysuria, increased frequency, urgency. No urinary retention. Musculoskeletal: No myalgias. No muscle weakness, no gait dysfunction, no frequent falls. No back pain. No neck pain. Reports left hip pain Integumentary: No wounds, no lesions. No rash or pruritus. No unusual bruising. No change in hair or nails. Neurologic: No aphasia. No facial droop. No change in mentation. No head injury. No headache. No paralysis. No paresthesia. Psychiatric: No depression. No anxiety. No mood swings. Endocrine: No abnormal blood sugars. No weight change. No excessive sweating or thirst. No cold intolerance. PHYSICAL EXAMINATION: GENERAL: The patient is asleep but easily arousable, alert and oriented x3, Well developed, well nourished. Elderly-appearing HEENT: Pupils are round and equally reacting to light. EOMI. no scleral icterus. No conjunctival pallor. Normocephalic, atraumatic. No pharyngeal erythema. No thyromegaly. CARDIOVASCULAR: S1 and S2 muffled PULMONARY: diminished breath sounds bilaterally with no wheezing or rhonchi noted. ABDOMEN: soft. Nontender on exam. obese. non-distended, normoactive bowel sounds. No palpable organomegaly. MUSCULOSKELETAL: No joint swelling or deformity. EXTREMITIES: No cyanosis, clubbing, or pedal edema. Left hip surgical dressing is dry and intact with some swelling noted NEUROLOGICAL: Gross neurological examination did not reveal any focal deficits. Diffuse weakness SKIN: No rashes. Assessment: Status post left total hip arthroplasty Severe osteoarthritis of the left hip History of asthma, not an exacerbation History of GERD Hyperlipidemia history Hypertension Memory impairment Thyroid disorder History of anxiety/depression GI prophylaxis DVT prophylaxis Full code Plan: Recommend to continue with current medications and management per orthopedic services. Home medications have been reviewed and resumed as appropriate and would recommend holding blood pressure medications and follow-up in the a.m. as patient is currently normotensive and on the lower side. Encouraged incentive spirometer use at least 10 times every hour while awake Continue with albuterol inhaled treatments as needed DVT prophylaxis and pain management per orthopedics Will await PT/OT therapy evaluation Follow-up labs in the a.m. ordered We will continue to follow with orthopedics during hospitalization. Thank you kindly for this consultation. The impression and plan of care has been dictated by Rhina Shen, nurse practitioner as directed. Dr. Theron MD I have performed a history and examination and MDM of this patient, discussed the same with the dictator, and agree with the dictator's assessment and plan as written ,documented as a scribe. Based on total visit time, I have performed more than 50% of the visit. Any additional findings or plans will be noted. Past Medical History Past Medical History: Asthma, GERD/Reflux, Hyperlipidemia, Hypertension, Memory Impairment, Osteoarthritis (OA), Thyroid Disorder Additional Past Medical History / Comment(s): hx dysphagia, gout, mild memory issues, History of Any Multi-Drug Resistant Organisms: None Reported Past Surgical History: Hysterectomy, Joint Replacement Additional Past Surgical History / Comment(s): EGD w/ dilation, total knee, Past Anesthesia/Blood Transfusion Reactions: No Reported Reaction Smoking Status: Never smoker - Past Family History Mother Family Medical History: No Reported History Son(s) Family Medical History: Diabetes Mellitus Additional Family Medical History / Comment(s): another son with asthma Medications and Allergies Home Medications Medication Instructions Recorded Confirmed Type Albuterol Nebulized [Ventolin 2.5 mg INHALATION Q6H PRN 05/23/20 07/09/23 History Nebulized] Fenofibrate Nanocrystallized 145 mg PO 1400 05/23/20 07/09/23 History [Fenofibrate] Levothyroxine Sodium [Synthroid] 200 mcg PO QAM 05/23/20 07/14/23 History Montelukast [Singulair] 10 mg PO HS 05/23/20 07/09/23 History Omeprazole 20 mg PO DAILY 05/23/20 07/09/23 History allopurinoL [Zyloprim] 150 mg PO DAILY 05/23/20 07/09/23 History Citalopram Hydrobromide 40 mg PO HS 11/21/20 07/09/23 History [Citalopram HBr] Cyanocobalamin (Vitamin B-12) 1,000 mcg PO DAILY 11/21/20 07/09/23 History [Vitamin B-12] amLODIPine BESYLATE [Norvasc] 5 mg PO QAM 11/21/20 07/14/23 History Celecoxib [CeleBREX] 200 mg PO DAILY 5 Days #5 capsule 11/27/20 07/09/23 Rx Primidone [Mysoline] 50 mg PO BID 08/20/21 07/09/23 History Aspirin 325 mg PO BID #60 tab 07/14/23 Rx HYDROcodone/APAP 7.5-325MG [Leary 1 - 2 tab PO Q6H PRN #32 tab 07/14/23 Rx 7.5-325] Losartan/Hydrochlorothiazide 1 tab PO DAILY 07/14/23 07/14/23 History [Losartan-Hctz 100-25 mg Tab] Sennosides [Senokot] 2 tab PO DAILY PRN #60 tablet 07/14/23 Rx Allergies Allergy/AdvReac Type Severity Reaction Status Date / Time No Known Allergies Allergy Verified 07/14/23 06:09 Physical Exam Vitals: Vital Signs Temp Pulse Pulse Pulse Resp BP BP 07/14/23 12:15 78 07/14/23 12:00 81 07/14/23 11:45 81 07/14/23 11:30 76 07/14/23 11:15 78 07/14/23 11:00 78 07/14/23 10:45 76 07/14/23 10:30 80 07/14/23 10:15 97.4 F L 71 18 07/14/23 09:45 66 16 106/60 07/14/23 09:31 68 16 106/63 07/14/23 09:17 72 16 98/54 07/14/23 09:02 74 18 115/59 07/14/23 08:52 98.6 F 79 18 114/62 07/14/23 06:45 88 16 117/63 07/14/23 06:00 98.3 F 97 16 150/74 BP Pulse Ox 07/14/23 12:15 118/72 91 L 07/14/23 12:00 117/72 85 L 07/14/23 11:45 115/70 89 L 07/14/23 11:30 118/70 93 L 07/14/23 11:15 115/70 95 07/14/23 11:00 115/70 96 07/14/23 10:45 112/69 88 L 07/14/23 10:30 114/66 86 L 07/14/23 10:15 107/65 92 L 07/14/23 09:45 97 07/14/23 09:31 97 07/14/23 09:17 97 07/14/23 09:02 97 07/14/23 08:52 92 L 07/14/23 06:45 92 L 07/14/23 06:00 92 L Intake and Output 07/13/23 07/14/23 07/14/23 22:59 06:59 14:59 Intake Total 1051 50 Output Total 200 Balance 1051 -150 Intake: IV 1051 50 Output: Estimated Blood Loss 200 Other: # Voids 1 # Bowel Movements 1 Weight 71.5 kg
[2023-07-14] MEDS: CITALOPRAM HYDROBROMIDE 20 MG TAB PO SCH (20:25)
[2023-07-14] MEDS: SENNOSIDES-DOCUSATE SODIUM 1 EACH TAB PO SCH (20:25)
[2023-07-14] MEDS: ASPIRIN 325 MG TAB PO SCH (20:25)
[2023-07-14] MEDS: PRIMIDONE 50 MG TAB PO SCH (20:25)
[2023-07-15] MEDS: SODIUM CHLORIDE 0.9% 1,000 ML IV SCH ×2 (04:38→15:33)
[2023-07-15 08:19] LABS: African American GFR (CKD) 79 (>60 ml/min/1.73 sqM); Anion Gap 11 mmol/L; Blood Urea Nitrogen 28 mg/dL (7-17); Calcium 9.1 mg/dL (8.4-10.2); Carbon Dioxide 25 mmol/L (22-30); Chloride 100 mmol/L (98-107); Glucose 90 mg/dL (74-99); Non-African American GFR(CKD) 69 (>60 ml/min/1.73 sqM); Sodium 136 mmol/L (137-145)
[2023-07-15 08:20] LABS: Potassium 3.8 mmol/L (3.5-5.1)
[2023-07-15 08:21] LABS: Basophils % (A) 0 %; Eosinophils # (A) 0.2 k/uL (0-0.7); Eosinophils % (A) 1 %; HCT 32.8 % (34.0-46.0); Lymphocytes # (A) 1.1 k/uL (1.0-4.8); Lymphocytes % (A) 8 %; MCH 30.4 pg (25.0-35.0); MCHC 33.4 g/dL (31.0-37.0); MCV 90.8 fL (80.0-100.0); Mean Platelet Volume 9.4; Monocytes # (A) 0.7 k/uL (0-1.0); Monocytes % (A) 5 %; Neutrophils # (A) 11.6 k/uL (1.3-7.7); Neutrophils % (A) 84 %; Platelet Count 175 k/uL (150-450); RBC 3.61 m/uL (3.80-5.40); RDW 13.1 % (11.5-15.5); WBC 13.8 k/uL (3.8-10.6)
[2023-07-15] MEDS: LACTATED RINGERS 1,000 ML IV SCH (08:31)
[2023-07-15] MEDS: allopurinoL 300 MG TAB PO SCH (08:32)
[2023-07-15] MEDS: LEVOTHYROXINE 100 MCG TAB PO SCH (08:32)
[2023-07-15] MEDS: PANTOPRAZOLE 40 MG TABLET PO SCH (08:32)
[2023-07-15] MEDS: HYDROcodone/APAP 7.5-325MG 1 EACH TAB PO PRN (08:33)
[2023-07-15] MEDS: ASPIRIN 325 MG TAB PO SCH ×2 (08:33→21:15)
[2023-07-15] MEDS: PRIMIDONE 50 MG TAB PO SCH ×2 (08:33→21:16)
--- NOTE | 2023-07-15 10:15 | P.PN ---
Subjective Progress Note Date: 07/15/23 This is an 82-year-old female who is status post left total hip arthroplasty with direct anterior approach. This is postoperative day #1 and patient is seen and evaluated at bedside with Dr. Vinny Ward. Patient states that she is doing well, but needs a lot of assistance with mobilization. Patient denies any fever/chills, numbness, weakness, tingling, abdominal pain, shortness of breath or chest pain. Objective - Vital Signs Vital signs: Vital Signs Temp 98.4 F 07/15/23 07:03 Pulse 82 07/15/23 07:03 Resp 16 07/15/23 07:03 BP 125/80 07/15/23 07:03 Pulse Ox 89 L 07/15/23 07:03 FiO2 Intake & Output 07/14/23 07/15/23 07/15/23 18:59 06:59 18:59 Intake Total 450 Output Total 200 Balance 250 Weight 71.5 kg Intake: IV 50 Intake, IV Titration 400 Amount Sodium Chloride 0.9% 1, 350 000 ml @ 70 mls/hr IV . [id number] [facility] Rx#:[id number] ceFAZolin 2 gm In Sodium 50 Chloride 0.9% 50 ml @ 100 mls/hr IVPB Q8H [facility] Rx#: [id number] Output: Estimated Blood Loss 200 Other: Voiding Method Bedside Commode # Voids 1 4 1 # Bowel Movements 1 - Exam Vital signs are stable. Patient is in no acute distress and is alert and oriented 3. Calf is soft and nontender to palpation. Dressing is clean, dry, and intact. Patient has full foot and ankle motion without pain or difficulty. Sensation intact. Neurovascular status and circulatory status are intact. - Labs CBC & Chem 7: 07/15/23 06:56 07/15/23 06:56 Labs: Abnormal Lab Results - Last 24 Hours (Table) 07/15/23 07/15/23 Range/Units 06:56 06:56 WBC 13.8 H (3.8-10.6) k/uL RBC 3.61 L (3.80-5.40) m/uL Hgb 11.0 L (11.4-16.0) gm/dL Hct 32.8 L (34.0-46.0) % Neutrophils # 11.6 H (1.3-7.7) k/uL Sodium 136 L (137-145) mmol/L BUN 28 H (7-17) mg/dL Assessment and Plan (1) Osteoarthritis of left hip Current Visit: Yes Status: Acute Code(s): M16.12 - UNILATERAL PRIMARY OSTEOARTHRITIS, LEFT HIP SNOMED Code(s): 612041955014412 (2) S/P total hip arthroplasty Current Visit: Yes Status: Acute Code(s): Z96.649 - PRESENCE OF UNSPECIFIED ARTIFICIAL HIP JOINT SNOMED Code(s): 490009441501 Plan: Continue routine postop care and pain control. Continue anticoagulation with aspirin. Weightbearing as tolerated with a walker. Leave dressing in place for 7 days. Appreciate input from internal medicine. Patient would benefit from inpatient rehab. Anticipate discharge to [facility] in the next 24-48 hours.
[2023-07-15] MEDS: SENNOSIDES-DOCUSATE SODIUM 1 EACH TAB PO SCH (16:37)
[2023-07-15] MEDS: CITALOPRAM HYDROBROMIDE 20 MG TAB PO SCH (21:15)
[2023-07-16] MEDS ORDERED: HYDROmorphone 0.5 MG/0.5 ML SYRINGE IVP PRN (05:06)
--- NOTE | 2023-07-16 05:10 | P.PN ---
Subjective Progress Note Date: 07/15/23 - Reason for Consult Consult date: 07/14/23 Medical management, postop left hip arthroplasty - History of Present Illness This is a very Pleasant 82-year-old female who was admitted under orthopedic services this morning and underwent left total hip arthroplasty with anterior approach secondary to severe osteoarthritis of the left hip. Patient reports she follows with Dr. Ramirez in the outpatient setting with a past medical history of asthma, GERD, hyperlipidemia, hypertension, memory impairment, osteoarthritis, thyroid disorder, anxiety/depression. Patient denies any tobacco or illicit drug use and very rarely drinks anything. Patient is postop day 0 and have been consulted for medical management. Patient reports she did undergo presurgical clearance. Patient is extremely lethargic on exam although arousable and maintained on 2 L via nasal cannula. Home medications have been reviewed and resumed as appropriate and we will continue to follow with orthopedics during hospitalization. Discussed with nursing staff about the use of incentive spirometer and instructing advocating to use at least 10 times every hour while awake. 07/15/2023 Patient is seen in follow-up this morning currently sitting up in the chair r eports to having some left hip discomfort also currently managed. Recommend avoiding IV pain medications patient's age and continue with oral pain medications if needed. Patient currently on 2 L via nasal cannula reports does not wear oxygen outpatient although does use nebulize treatments. Recommend weaning FiO2 as tolerated. Encouraged incentive spirometer use at least 10 times every hour while awake. Will also discontinue IV fluids. Patient with weakness physical therapy recommending rehab and patient is agreeable. Case management working on possible [facility] Review of systems: Constitutional: No reports of fatigue, fever, or chills Cardiovascular: No reports of chest pain or palpitations Respiratory: No reports of shortness of breath or cough GI: No reports of nausea, vomiting, or diarrhea : No reports of dysuria or retention Neurovascular: reports of generalized weakness All medications have been reviewed PHYSICAL EXAMINATION: GENERAL: The patient is awake, alert and oriented x3, Well developed, well nourished. Elderly-appearing HEENT: Pupils are round and equally reacting to light. EOMI. no scleral icterus. No conjunctival pallor. Normocephalic, atraumatic. No pharyngeal erythema. No thyromegaly. CARDIOVASCULAR: S1 and S2 muffled PULMONARY: diminished breath sounds bilaterally with no wheezing or rhonchi noted. ABDOMEN: soft. Nontender on exam. obese. non-distended, normoactive bowel sounds. No palpable organomegaly. MUSCULOSKELETAL: No joint swelling or deformity. EXTREMITIES: No cyanosis, clubbing, or pedal edema. Left hip surgical dressing is dry and intact with some minimal swelling noted NEUROLOGICAL: Gross neurological examination did not reveal any focal deficits. Diffuse weakness SKIN: No rashes. Assessment: Status post left total hip arthroplasty Severe osteoarthritis of the left hip History of asthma, not an exacerbation History of GERD Hyperlipidemia history Hypertension Memory impairment Thyroid disorder History of anxiety/depression GI prophylaxis DVT prophylaxis Full code Plan: Recommend to continue with current medications and management per orthopedic services. Home medications have been reviewed and resumed as appropriate and would recommend holding blood pressure medications and follow-up in the a.m. as patient is currently normotensive and on the lower side. Monitoring for postoperative hypotension Encouraged incentive spirometer use at least 10 times every hour while awake and wean FiO2 as tolerated. Currently on 2 L Continue with albuterol inhaled treatments as needed DVT prophylaxis and pain management per orthopedics. Strongly recommend avoiding IV pain medications PT/OT therapy evaluated the patient recommending rehab and patient is agreeable. requirements manager following with plans for [facility] Discontinue IV fluids as patient is eating drinking normally We will continue to follow with orthopedics during hospitalization. Thank you kindly for this consultation. The impression and plan of care has been dictated by Rhina Shen, nurse practitioner as directed. Dr. Theron MD I have performed a history and examination and MDM of this patient, discussed the same with the dictator, and agree with the dictator's assessment and plan as written ,documented as a scribe. Based on total visit time, I have performed more than 50% of the visit. Any additional findings or plans will be noted. Objective - Vital Signs Vital signs: Vital Signs Temp 98.4 F 07/15/23 07:03 Pulse 82 07/15/23 07:03 Resp 16 07/15/23 07:03 BP 125/80 07/15/23 07:03 Pulse Ox 89 L 07/15/23 07:03 FiO2 Intake & Output 07/14/23 07/15/23 07/15/23 18:59 06:59 18:59 Intake Total 450 Output Total 200 Balance 250 Weight 71.5 kg Intake: IV 50 Intake, IV Titration 400 Amount Sodium Chloride 0.9% 1, 350 000 ml @ 70 mls/hr IV . [id number] [facility] Rx#:[id number] ceFAZolin 2 gm In Sodium 50 Chloride 0.9% 50 ml @ 100 mls/hr IVPB Q8H [facility] Rx#: [id number] Output: Estimated Blood Loss 200 Other: Voiding Method Bedside Commode # Voids 1 4 1 # Bowel Movements 1 - Labs CBC & Chem 7: 07/15/23 06:56 07/15/23 06:56 Labs: Abnormal Lab Results - Last 24 Hours (Table) 07/15/23 07/15/23 Range/Units 06:56 06:56 WBC 13.8 H (3.8-10.6) k/uL RBC 3.61 L (3.80-5.40) m/uL Hgb 11.0 L (11.4-16.0) gm/dL Hct 32.8 L (34.0-46.0) % Neutrophils # 11.6 H (1.3-7.7) k/uL Sodium 136 L (137-145) mmol/L BUN 28 H (7-17) mg/dL
[2023-07-16] MEDS: PANTOPRAZOLE 40 MG TABLET PO SCH (06:46)
[2023-07-16] MEDS: LEVOTHYROXINE 100 MCG TAB PO SCH (06:47)
[2023-07-16] MEDS: SODIUM CHLORIDE 0.9% 1,000 ML IV SCH (07:10)
[2023-07-16 08:26] VITALS: BP 124/76; PULSE 83; RESP 16; TEMP 98.4
[2023-07-16] MEDS: PRIMIDONE 50 MG TAB PO SCH (09:50)
[2023-07-16] MEDS: ASPIRIN 325 MG TAB PO SCH (09:50)
[2023-07-16] MEDS: allopurinoL 300 MG TAB PO SCH (09:50)
[2023-07-16] MEDS: HYDROcodone/APAP 7.5-325MG 1 EACH TAB PO PRN ×2 (09:51→15:46)
--- NOTE | 2023-07-16 13:19 | P.DS ---
Providers Date of admission: 07/14/23 08:59 Expected date of discharge: 07/16/23 Attending physician: Vinny Ward Consults: 07/14/23 08:59 Consult Physician Routine Consulting Provider: Bladimir Storey Consult Reason/Comments: medical management Do you want consulting provider notified?: Yes Primary care physician: Santos Ramirez - Discharge Diagnosis(es) (1) Osteoarthritis of left hip Current Visit: Yes Status: Acute (2) S/P total hip arthroplasty Current Visit: Yes Status: Acute Hospital Course: This is an 82-year-old female with known history of degenerative arthritis of the left hip. The patient presented for evaluation as an outpatient. After discussion and consideration patient elects to proceed with total hip arthroplasty. The patient is seen preoperatively by Dr. Ward and medically cleared for surgery by their primary care physician. Patient is [facility] to [facility] on 07/14[facility]2023 for total hip arthroplasty. The procedure is performed without complication or sequelae. The patient is doing well postoperatively. Labs and vital signs are stable on day of discharge. On day of discharge patient's hip incision is healing well. There is minimal erythema. There is no drainage noted at this time. There is minimal soft tissue swelling to the hip and thigh. Patient has full foot and ankle motion without difficulty or pain. Calf is soft and nontender to palpation. Neurovascular status to the left lower extremity is intact. Patient is discharged to rehab in good condition. Please see med rec for accurate list of home medications. Plan - Discharge Summary Discharge Rx Participant: No New Discharge Prescriptions: New Sennosides [Senokot] 2 tab PO DAILY PRN #60 tablet PRN Reason: Constipation Aspirin 325 mg PO BID #60 tab HYDROcodone/APAP 7.5-325MG [[place] 7.5-325] 1 - 2 tab PO Q6H PRN #32 tab PRN Reason: Pain No Action Albuterol Nebulized [Ventolin Nebulized] 2.5 mg INHALATION Q6H PRN PRN Reason: Shortness Of Breath Montelukast [Singulair] 10 mg PO HS Omeprazole 20 mg PO DAILY Levothyroxine Sodium [Synthroid] 200 mcg PO QAM Fenofibrate Nanocrystallized [Fenofibrate] 145 mg PO 1400 allopurinoL [Zyloprim] 150 mg PO DAILY Cyanocobalamin (Vitamin B-12) [Vitamin B-12] 1,000 mcg PO DAILY Citalopram Hydrobromide [Citalopram HBr] 40 mg PO HS amLODIPine BESYLATE [Norvasc] 5 mg PO QAM Celecoxib [CeleBREX] 200 mg PO DAILY 5 Days #5 capsule Primidone [Mysoline] 50 mg PO BID Losartan/Hydrochlorothiazide [Losartan-Hctz 100-25 mg Tab] 1 tab PO DAILY Discharge Medication List Albuterol Nebulized [Ventolin Nebulized] 2.5 mg INHALATION Q6H PRN 05/23/20 [History] Fenofibrate Nanocrystallized [Fenofibrate] 145 mg PO 1400 05/23/20 [History] Levothyroxine Sodium [Synthroid] 200 mcg PO QAM 05/23/20 [History] Montelukast [Singulair] 10 mg PO HS 05/23/20 [History] Omeprazole 20 mg PO DAILY 05/23/20 [History] allopurinoL [Zyloprim] 150 mg PO DAILY 05/23/20 [History] Citalopram Hydrobromide [Citalopram HBr] 40 mg PO HS 11/21/20 [History] Cyanocobalamin (Vitamin B-12) [Vitamin B-12] 1,000 mcg PO DAILY 11/21/20 [History] amLODIPine BESYLATE [Norvasc] 5 mg PO QAM 11/21/20 [History] Celecoxib [CeleBREX] 200 mg PO DAILY 5 Days #5 capsule 11/27/20 [Rx] Primidone [Mysoline] 50 mg PO BID 08/20/21 [History] Aspirin 325 mg PO BID #60 tab 07/14/23 [Rx] HYDROcodone/APAP 7.5-325MG [[place] 7.5-325] 1 - 2 tab PO Q6H PRN #32 tab 07/14/23 [Rx] Losartan/Hydrochlorothiazide [Losartan-Hctz 100-25 mg Tab] 1 tab PO DAILY 07/14/23 [History] Sennosides [Senokot] 2 tab PO DAILY PRN #60 tablet 07/14/23 [Rx] Follow up Appointment(s)/Referral(s): [facility], [[facility]] - 1-2 Days Farzana Vazquez, [NON-STAFF] - As Needed Santos Ramirez DO [Primary Care Provider] - 1 Week Vinny Ward DO [Doctor of Osteopathic Medicine] - 07/27/23 1:30 pm (With Kathleen) Activity/Diet/Wound Care/Special Instructions: Weightbearing as tolerated with walker. Leave dressing intact. Dressing may be removed by home care nurse or by patient in 7 days. Then change dressing twice daily until follow up. May shower with initial dressing intact and after removal. If dressing become saturated, please remove. Please take aspirin 325mg twice daily for 30 days to prevent blood clots. Recommend use of compression stockings daily until follow up to help prevent swelling and blood clots. May remove at night before sleeping. Please follow-up with [facility] in 2 weeks and call with any questions or concerns, . Discharge Disposition: TRANSFER TO SNF/ECF
--- NOTE | 2023-07-17 09:12 | P.PN ---
Subjective Progress Note Date: 07/16/23 - Reason for Consult Consult date: 07/14/23 Medical management, postop left hip arthroplasty - History of Present Illness This is a very Pleasant 82-year-old female who was admitted under orthopedic services this morning and underwent left total hip arthroplasty with anterior approach secondary to severe osteoarthritis of the left hip. Patient reports she follows with Dr. Ramirez in the outpatient setting with a past medical history of asthma, GERD, hyperlipidemia, hypertension, memory impairment, osteoarthritis, thyroid disorder, anxiety/depression. Patient denies any tobacco or illicit drug use and very rarely drinks anything. Patient is postop day 0 and have been consulted for medical management. Patient reports she did undergo presurgical clearance. Patient is extremely lethargic on exam although arousable and maintained on 2 L via nasal cannula. Home medications have been reviewed and resumed as appropriate and we will continue to follow with orthopedics during hospitalization. Discussed with nursing staff about the use of incentive spirometer and instructing advocating to use at least 10 times every hour while awake. 07/15/2023 Patient is seen in follow-up this morning currently sitting up in the chair r eports to having some left hip discomfort also currently managed. Recommend avoiding IV pain medications patient's age and continue with oral pain medications if needed. Patient currently on 2 L via nasal cannula reports does not wear oxygen outpatient although does use nebulize treatments. Recommend weaning FiO2 as tolerated. Encouraged incentive spirometer use at least 10 times every hour while awake. Will also discontinue IV fluids. Patient with weakness physical therapy recommending rehab and patient is agreeable. Case management working on possible [facility] 07/16/2023 Patient is seen and evaluated in follow-up today currently reporting her pain is controlled on current regimen and reporting is having bowel movements since last night as well as urinating with no difficulties. Patient is afebrile no reports of chest pain or shortness of breath. Patient is on 2 L and does not wear oxygen outpatient and currently 97% and discussed with nursing staff about weaning FiO2. Patient encouraged to use incentive spirometer at least 10 times every hour while awake. Patient denies any nausea or vomiting and is tolerating diet. Plan is to go to [facility] today. Patient is medically stable for discharge once cleared by orthopedics. Review of systems: Constitutional: No reports of fatigue, fever, or chills Cardiovascular: No reports of chest pain or palpitations Respiratory: No reports of shortness of breath or cough GI: No reports of nausea, vomiting, or diarrhea and reports having bowel movements : No reports of dysuria or retention Neurovascular: reports of generalized weakness All medications have been reviewed PHYSICAL EXAMINATION: GENERAL: The patient is awake, alert and oriented x3, Well developed, well nourished. Elderly-appearing HEENT: Pupils are round and equally reacting to light. EOMI. no scleral icterus. No conjunctival pallor. Normocephalic, atraumatic. No pharyngeal erythema. No thyromegaly. CARDIOVASCULAR: S1 and S2 muffled PULMONARY: diminished breath sounds bilaterally with no wheezing or rhonchi noted. ABDOMEN: soft. Nontender on exam. obese. non-distended, normoactive bowel sounds. No palpable organomegaly. MUSCULOSKELETAL: No joint swelling or deformity. EXTREMITIES: No cyanosis, clubbing, or pedal edema. Left hip surgical dressing is dry and intact with some minimal swelling noted NEUROLOGICAL: Gross neurological examination did not reveal any focal deficits. Diffuse weakness SKIN: No rashes. Assessment: Status post left total hip arthroplasty Severe osteoarthritis of the left hip History of asthma, not an exacerbation History of GERD Hyperlipidemia history Hypertension Memory impairment Thyroid disorder History of anxiety/depression GI prophylaxis DVT prophylaxis Full code Plan: Recommend to continue with current medications and management per orthopedic services. Home medications have been reviewed and resumed and blood pressure is a little more elevated and will resume home medications Encouraged incentive spirometer use at least 10 times every hour while awake and wean FiO2 as tolerated. Currently on room air Continue with albuterol inhaled treatments as needed DVT prophylaxis and pain management per orthopedics. PT/OT therapy evaluated the patient recommending rehab and patient is agreeable. money manager following with plans for [facility] today Patient Is medically stable for discharge to [facility] We will continue to follow with orthopedics during hospitalization. Thank you kindly for this consultation. The impression and plan of care has been dictated by Rhina Shen, nurse practitioner as directed. Dr. Theron MD I have performed a history and examination and MDM of this patient, discussed the same with the dictator, and agree with the dictator's assessment and plan as written ,documented as a scribe. Based on total visit time, I have performed more than 50% of the visit. Any additional findings or plans will be noted. Objective - Vital Signs Vital signs: Vital Signs Temp 98.4 F 07/16/23 06:56 Pulse 83 07/16/23 06:56 Resp 16 07/16/23 06:56 BP 124/76 07/16/23 06:56 Pulse Ox 97 07/16/23 06:56 FiO2 Intake & Output 07/15/23 07/16/23 07/16/23 18:59 06:59 18:59 Other: Voiding Method Bedside Commode Bedside Commode # Voids 3 4 # Bowel Movements 3 - Labs CBC & Chem 7: 07/15/23 06:56 07/15/23 06:56
== END 2023-07-16 15:53 | DRG 470 ==
LOC: OR 05:38 → EDSTATUS 07:00 → 4SSUR 08:59
PROVIDERS: ADMIT Orthopaedic Surgery; ATTEND Orthopaedic Surgery
PROC: 3E0T3BZ Introduction of Anesthetic Agent into Peripheral Nerves and Plexi, Percutaneous Approach (ICD-10-PCS; 2023-07-14)
PROC: 0SRB06A Replacement of Left Hip Joint with Oxidized Zirconium on Polyethylene Synthetic Substitute, Uncemented, Open Approach (ICD-10-PCS; principal; 2023-07-14 07:00)
DX: M16.12 Unilateral primary osteoarthritis, left hip (principal); I10 Essential (primary) hypertension; E78.5 Hyperlipidemia, unspecified; E07.9 Disorder of thyroid, unspecified; Z79.890 Hormone replacement therapy; J45.909 Unspecified asthma, uncomplicated; K21.9 Gastro-esophageal reflux disease without esophagitis; F41.9 Anxiety disorder, unspecified; F32.A Depression, unspecified; R41.3 Other amnesia; Z79.82 Long term (current) use of aspirin; Z79.1 Long term (current) use of non-steroidal anti-inflammatories (NSAID); Z79.899 Other long term (current) drug therapy; Z83.3 Family history of diabetes mellitus; Z90.710 Acquired absence of both cervix and uterus; M10.9 Gout, unspecified
CPT/HCPCS: 64447; 73501; 80048; 83735; 85025